=== PATIENT | male | born 1945 | race Caucasian/White ===

== ENCOUNTER → 2020-06-30 | Outpatient (CLI) | payer MEDICARE ==
--- NOTE | 2020-06-30 08:29 | CT ---
EXAMINATION TYPE: CT brain wo con DATE OF EXAM: 06/30/2020 HISTORY: Tremor, unspecified left-sided CT DLP: 1064.30 mGycm. Automated Exposure Control for Dose Reduction was Utilized. TECHNIQUE: CT scan of the head is performed without contrast. COMPARISON: None. FINDINGS: There is no acute intracranial hemorrhage or midline shift identified. There is diffuse v entricular and sulcal prominence consistent with diffuse age-related cerebral atrophy. There is low- attenuation in the periventricular white matter consistent with chronic small vessel ischemic change. Patchy soft tissue density in the bilateral external auditory canals is felt to reflect cerumen. Dep endent air-fluid level right maxillary sinus. Patchy secretions in the right frontal sinus. Mild call osal thickening left frontal sinus. Zxyr-ot-vyelrjiz mucosal thickening in the left ethmoid sinuses g reater anteriorly. The globes are intact bilaterally. IMPRESSION: No acute intracranial hemorrhage or midline shift. There is background mild to moderate diffuse age-related cerebral atrophy and chronic small vessel ischemic change along with acute on ch ronic paranasal sinus disease as detailed above all noted.
== END | disposition home or self-care (01) ==
LOC: RADCTMAIN 07:12
PROVIDERS: ATTEND Psychiatry & Neurology Neurology
DX: G31.1 Senile degeneration of brain, not elsewhere classified (principal); I67.82 Cerebral ischemia
CPT/HCPCS: 70450

== ENCOUNTER 2021-11-18 11:26 | Emergency (ER) | payer MEDICARE ==
[2021-11-18 12:01] LABS: Glucose,Whole Blood 216 mg/dL (75-99)
[2021-11-18 12:02] VITALS: RESP 18
[2021-11-18] MEDS ORDERED: HYDROmorphone 1 MG/ML 1 ML SYRINGE IM STA (12:17)
--- NOTE | 2021-11-18 12:40 | XR ---
EXAMINATION TYPE: XR wrist complete LT DATE OF EXAM: 11/18/2021 COMPARISON: NONE HISTORY: Pain TECHNIQUE: Four views submitted. FINDINGS: There is a comminuted distal placed intra-articular fracture of the distal radius with extensive soft tissue edema. Vascular calcifications are suspected. Remaining osseous structures are grossly intact . A scaphoid view nondiagnostic due to motion. IMPRESSION: 1. Displaced comminuted intra-articular fracture distal radius.
--- NOTE | 2021-11-18 12:54 | ED ---
General Adult HPI - General Chief complaint: Fall Stated complaint: Fall/Lt Wrist Injury Time Seen by Provider: 11/18/21 12:12 Source: patient, RN notes reviewed, old records reviewed Mode of arrival: wheelchair Limitations: no limitations - History of Present Illness Initial comments: 76-year-old male presenting for a trip and fall, left wrist pain. Patient states his blood sugar was on the low side, had gone to the kitchen to get some breakfast. He turned quickly to answer the door and fell onto his left wrist. He denies head trauma. His only complaint is left wrist pain. He states that he did notice a significant deformity. - Related Data Home Medications Medication Instructions Recorded Confirmed INSULIN LISPRO (humaLOG) [HumaLOG] 0 units SQ CONTINUOUS 02/16/15 10/19/16 lisinopriL [Zestril] 2.5 mg PO DAILY 02/16/15 10/19/16 Ibuprofen [Motrin] 200 mg PO Q6HR PRN 10/18/16 10/19/16 Multivitamins, Thera [Multivitamin] 1 tab PO DAILY 10/18/16 10/19/16 Previous Rx's Medication Instructions Recorded HYDROcodone/APAP 7.5-325MG [Luther 1 - 2 each PO Q6HR PRN #40 tab 10/19/16 7.5] HYDROcodone/APAP 7.5-325MG [Luther 1 tab PO Q6H PRN #20 tab 11/18/21 7.5-325] Ibuprofen [Motrin] 600 mg PO Q8HR PRN #24 tab 11/18/21 Allergies Allergy/AdvReac Type Severity Reaction Status Date / Time No Known Allergies Allergy Verified 11/18/21 12:02 Review of Systems ROS Statement: Those systems with pertinent positive or pertinent negative responses have been documented in the HPI. ROS Other: All systems not noted in ROS Statement are negative. Past Medical History Past Medical History: Diabetes Mellitus Additional Past Medical History / Comment(s): insulin pump, parkinsons History of Any Multi-Drug Resistant Organisms: None Reported Additional Past Surgical History / Comment(s): left leg surgery after injury Past Anesthesia/Blood Transfusion Reactions: No Reported Reaction Past Psychological History: No Psychological Hx Reported Smoking Status: Former smoker Past Alcohol Use History: Occasional Past Drug Use History: None Reported General Exam Limitations: no limitations General appearance: alert, in no apparent distress Head exam: Present: atraumatic, normocephalic Eye exam: Present: normal appearance, PERRL ENT exam: Present: normal exam Neck exam: Present: normal inspection. Absent: tenderness, meningismus Respiratory exam: Present: normal lung sounds bilaterally. Absent: respiratory distress, wheezes Cardiovascular Exam: Present: regular rate, normal rhythm GI/Abdominal exam: Present: soft. Absent: distended, tenderness Extremities exam: Present: joint swelling (Left upper extremity, deformity at the wrist with soft tissue swelling. Cap refill within the hand is normal. Distal pulses are intact, he does have range of motion of all digits although this is somewhat limited secondary to pain. No injury to the elbow or shoulder on the left side.) Back exam: Present: normal inspection Neurological exam: Present: alert, oriented X3, CN II-XII intact. Absent: motor sensory deficit Psychiatric exam: Present: normal affect, normal mood Skin exam: Present: warm, dry, intact. Absent: cyanosis, diaphoretic Course Vital Signs 11/18/21 11:56 Temperature 98.7 F Pulse Rate 54 L Respiratory 18 Rate Blood Pressure 183/77 O2 Sat by Pulse 100 Oximetry Procedures - Orthopedic Splinting/Casting Injury #1 Side: left Upper Extremity Injury Location: wrist Upper Extremity Immobilizer: sugar tong splint Medical Decision Making - Medical Decision Making 76-year-old male with fall, left wrist injury. X-ray revealed impacted distal radius with intra-articular extension. I was able to place the patient in a finger trap and had improved impaction he was placed in a splint. I discussed case with Reena salazar for [facility]. She was able to review the films and agrees with outpatient follow-up at this time. The patient is given referral to Dr. Llanes. Additionally pain medication prescribed. - Lab Data Lab Results 11/18/21 Range/Units 11:59 POC Glucose (mg/dL) 216 H (75-99) mg/dL POC Glu Septic Pump Truck Driver ID Amanda Alonzotany Disposition Clinical Impression: Distal radius fracture, left Disposition: HOME SELF-CARE Condition: Fair Instructions (If sedation given, give patient instructions): Wrist Fracture in Adults (ED) Prescriptions: Ibuprofen [Motrin] 600 mg PO Q8HR PRN #24 tab PRN Reason: Pain HYDROcodone/APAP 7.5-325MG [Luther 7.5-325] 1 tab PO Q6H PRN #20 tab PRN Reason: Pain Is patient prescribed a controlled substance at d/c from ED?: No Referrals: Roni Montenegro DO [Primary Care Provider] - 1-2 days Rochelle Llanes DO [Doctor of Osteopathic Medicine] - 1-2 days Time of Disposition: 13:34
--- NOTE | 2021-11-18 13:59 | XR ---
EXAMINATION TYPE: XR wrist limited LT DATE OF EXAM: 11/18/2021 COMPARISON: Earlier today HISTORY: 76-year-old male fall, postreduction exam. Patient in traction. TECHNIQUE: 2 views FINDINGS: Overlying fiberglass splint. Redemonstrated impacted and comminuted intra-articular fracture of the d istal radial metaphysis and epiphysis. Impaction of 9 mm is improved compared to 1.5 cm, previously. Resultant minimal positive ulnar variance. Fracture extends into the radiocarpal as well as the dista l radial ulnar joints. Mild degenerative change base of the thumb. IMPRESSION: The degree of impaction is improved. 9 mm of impaction remains of the comminuted intra-articular frac ture of the distal radial metaphysis and epiphysis versus 1.5 cm, previously. Intra-articular extensi on into both the radiocarpal and distal radioulnar joints. Overlying fiberglass splint.
[2021-11-18 14:13] VITALS: BP 158/74; PULSE 59; TEMP 98.6
== END 2021-11-18 14:10 | disposition home or self-care (01) ==
LOC: EC 11:26
DX: S52.592A Other fractures of lower end of left radius, initial encounter for closed fracture (principal); E11.9 Type 2 diabetes mellitus without complications; Z79.4 Long term (current) use of insulin; Z87.891 Personal history of nicotine dependence; W01.0XXA Fall on same level from slipping, tripping and stumbling without subsequent striking against object, initial encounter
CPT/HCPCS: 99283; 96372; 29125; 36415; 73100; 73110; J1170

== ENCOUNTER 2022-09-20 18:51 | Inpatient (IN) | payer MEDICARE ==
[2022-09-20] MEDS ORDERED: ONDANSETRON 4 MG/2 ML VIAL IVP STA (19:03)
[2022-09-20] MEDS ORDERED: SODIUM CHLORIDE 0.9% 1,000 ML IV STA (19:03)
[2022-09-20 19:07] LABS: Glucose,Whole Blood >600 mg/dL (70-110)
[2022-09-20] MEDS ORDERED: SODIUM CHLORIDE 0.9% 1,000 ML IV ONE (19:25)
[2022-09-20 19:26] LABS: Basophils % (A) 0 %; Eosinophils % (A) 0 %; HCT 43.3 % (39.0-53.0); HGB 12.6 gm/dL (13.0-17.5); Hypochromasia Marked; Lymphocytes # (A) 0.9 k/uL (1.0-4.8); Lymphocytes % (A) 4 %; MCH 30.6 pg (25.0-35.0); MCHC 29.2 g/dL (31.0-37.0); MCV 104.9 fL (80.0-100.0); Macrocytosis Slight; Monocytes # (A) 0.9 k/uL (0-1.0); Monocytes % (A) 4 %; Neutrophils # (A) 20.8 k/uL (1.3-7.7); Neutrophils % (A) 92 %; Platelet Count 318 k/uL (150-450); RBC 4.13 m/uL (4.30-5.90); RDW 12.4 % (11.5-15.5); WBC 22.7 k/uL (3.8-10.6)
[2022-09-20 19:30] LABS: VBG PH 7.07 (7.31-7.41)
--- NOTE | 2022-09-20 19:36 | ED ---
General Adult HPI - General Chief complaint: Recheck/Abnormal Lab/Rx Stated complaint: hyperglycemia Time Seen by Provider: 09/20/22 19:10 Source: patient, EMS, RN notes reviewed Mode of arrival: ambulatory Limitations: no limitations - History of Present Illness Initial comments: This is a 77-year-old diabetic male who arrives via EMS for high blood sugar. EMS had blood glucose in excess of 600. Patient is talking nonsensical and is essentially alert and oriented 1. Poor historian otherwise. Patient started talking about his . Patient does occasionally he is diabetic and his blood sugars running high. Patient knows he is in a hospital but is disoriented to time. Denying any pain. Patient will she's been sick for about 2 days. Review of systems are limited due to patient condition. Patient denies any chest pain or abdominal pain. No known fever. Denies vomiting. Denies change in bowel movements. States he is thirsty and has been urinating a lot. Note that apparently the patient had his insulin pump in his pocket and it was not on. Patient unable, however he was off the pump. - Related Data Home Medications Medication Instructions Recorded Confirmed Carbidopa-Levodopa ER 50-200Mg 1 tab PO BID 09/20/22 09/20/22 [Sinemet CR 50-200 mg] INSULIN LISPRO (For Pump) [humaLOG 0.01 units SQ-PUMP CONTINUOUS MDD 09/20/22 09/20/22 (For Pump)] 100 UNITS Allergies Allergy/AdvReac Type Severity Reaction Status Date / Time No Known Allergies Allergy Verified 09/20/22 21:06 Review of Systems ROS Statement: Those systems with pertinent positive or pertinent negative responses have been documented in the HPI. ROS Other: All systems not noted in ROS Statement are negative. Past Medical History Past Medical History: Diabetes Mellitus Additional Past Medical History / Comment(s): insulin pump, parkinsons, History of Any Multi-Drug Resistant Organisms: None Reported Additional Past Surgical History / Comment(s): left leg surgery after injury Past Anesthesia/Blood Transfusion Reactions: No Reported Reaction Past Psychological History: No Psychological Hx Reported Smoking Status: Former smoker Past Alcohol Use History: Occasional Past Drug Use History: None Reported General Exam - General Exam Comments Initial Comments: Patient in moderate distress secondary to hyperglycemia. Patient is alert and oriented 2. Cranial nerves II through XII are. The intact. Patient's confusion likely metabolic related. Capillary refill is about 3 seconds. There is no mottling. Dry mucous membranes. Limitations: no limitations General appearance: alert, in no apparent distress Head exam: Present: atraumatic, normocephalic, normal inspection Eye exam: Present: normal appearance, PERRL, EOMI. Absent: scleral icterus, conjunctival injection, periorbital swelling ENT exam: Present: normal oropharynx, mucous membranes dry, mucous membranes moist, TM's normal bilaterally, normal external ear exam. Absent: normal exam Neck exam: Present: normal inspection, full ROM. Absent: tenderness, meningismus, lymphadenopathy Respiratory exam: Present: normal lung sounds bilaterally. Absent: respiratory distress, wheezes, rales, rhonchi, stridor Cardiovascular Exam: Present: normal rhythm, tachycardia, normal heart sounds. Absent: regular rate, systolic murmur, diastolic murmur, rubs, gallop, clicks GI/Abdominal exam: Present: soft, hypoactive bowel sounds. Absent: distended, tenderness, guarding, rebound, rigid Extremities exam: Present: normal inspection, full ROM, normal capillary refill. Absent: tenderness, pedal edema, joint swelling, calf tenderness Back exam: Present: normal inspection Neurological exam: Present: alert, oriented X3, CN II-XII intact Psychiatric exam: Present: normal affect, normal mood Skin exam: Present: warm, dry, intact, normal color. Absent: rash Course Vital Signs 09/20/22 09/20/22 09/20/22 18:52 19:29 21:00 Temperature 98.2 F 98.7 F Pulse Rate 122 H 112 H 111 H Respiratory 28 H 32 H 18 Rate Blood Pressure 144/57 137/51 97/41 O2 Sat by Pulse 100 98 96 Oximetry 09/20/22 09/20/22 21:41 22:03 Temperature Pulse Rate 110 H 109 H Respiratory 18 17 Rate Blood Pressure 110/57 137/77 O2 Sat by Pulse 97 96 Oximetry - Reevaluation(s) Reevaluation #1: 09/20/22 20:09 Patient reevaluated. Patient still in fairly significant distress secondary to hyperglycemia. The case was discussed in detail with ED attending physician. Presentation, findings, treatment plan discussed in detail. Reevaluation #2: 09/20/22 21:17 Medical record is reviewed Patient symptomology starting to improve. Alert and oriented 2. Awaiting radiographic interpretations. Patient is informed of results and questions answered Patient in no distress Reevaluation #3: 09/20/22 22:04 Computed tomography scan of the abdomen shows streaky atelectasis of lung bases. No evidence of infiltrate. Patient does have cholelithiasis with dense gallstones in the gallbladder neck, motion limits evaluation. Pancreas is unremarkable. - Consultations Consultation #1: Case discussed in detail with ED attending physician as well as the superintendent landfill operations, Dr. Colvin who at accepts the patient to the ICU. Awaiting callback from the patient's PCP EKG Findings - EKG Comments: EKG Findings:: EKG done at 1903 ED attending physician reveals sinus tachycardia with a first-degree AV block. Left atrial enlargement, left axis deviation, right bundle-branch block, DC interval 250 ms. Remainder of the intervals are normal. No definitive evidence of acute ST or T-wave abnormalities. No comparison study. Medical Decision Making - Medical Decision Making Patient presents with what is likely DKA or hyperosmolar state. Blood sugar in excess of 600. Infectious etiology or cofounding factor possible. Patient's is not here. Patient's poor historian. Difficult to get an accurate history. Does not appear to have any focal neurologic deficits. No evidence of injury. Patient denies nausea or vomiting however in the nurse's note per EMS the patient did have episodes of nausea and vomiting at home. Patient was also seen and assessed by the attending physician, Dr. Thomas We are trying to get hold patient's . Patient computed tomography scan did show gallstones. However patient has normal alkaline phosphatase and liver enzymes. I suspect these are not problematic at this time. No other definitive evidence of infectious process. I see no reason to place patient on antibiotics as now. This was discussed with both Dr. Colvin and Dr. Salazar - Lab Data Result diagrams: 09/20/22 19:15 09/20/22 19:15 Lab Results 09/20/22 09/20/22 09/20/22 Range/Units 18:57 19:15 19:15 WBC 22.7 H (3.8-10.6) k/uL RBC 4.13 L (4.30-5.90) m/uL Hgb 12.6 L (13.0-17.5) gm/dL Hct 43.3 (39.0-53.0) % MCV 104.9 H (80.0-100.0) fL MCH 30.6 (25.0-35.0) pg MCHC 29.2 L (31.0-37.0) g/dL RDW 12.4 (11.5-15.5) % Plt Count 318 (150-450) k/uL MPV 10.0 Neutrophils % 92 % Lymphocytes % 4 % Monocytes % 4 % Eosinophils % 0 % Basophils % 0 % Neutrophils # 20.8 H (1.3-7.7) k/uL Lymphocytes # 0.9 L (1.0-4.8) k/uL Monocytes # 0.9 (0-1.0) k/uL Eosinophils # 0.0 (0-0.7) k/uL Basophils # 0.0 (0-0.2) k/uL Hypochromasia Marked Macrocytosis Slight PT 11.0 (9.0-12.0) sec INR 1.0 (<1.2) APTT 22.4 (22.0-30.0) sec VBG pH (7.31-7.41) VBG pCO2 (37-51) mmHg VBG HCO3 (24-28) mmol/L Sodium (137-145) mmol/L Potassium (3.5-5.1) mmol/L Chloride (98-107) mmol/L Carbon Dioxide (22-30) mmol/L Anion Gap mmol/L BUN (9-20) mg/dL Creatinine (0.66-1.25) mg/dL Est GFR (CKD-EPI)AfAm (>60 ml/min/1.73 sqM) Est GFR (CKD-EPI)NonAf (>60 ml/min/1.73 sqM) Glucose (74-99) mg/dL POC Glucose (mg/dL) >600 H (70-110) mg/dL POC Glu Body Press Operator ID Nasrin Rojas Lactic Ac Sepsis Rflx Plasma Lactic Acid Alonso (0.7-2.0) mmol/L Calcium (8.4-10.2) mg/dL Phosphorus (2.5-4.5) mg/dL Magnesium (1.6-2.3) mg/dL Total Bilirubin (0.2-1.3) mg/dL AST (17-59) U/L ALT (4-49) U/L Alkaline Phosphatase (38-126) U/L Troponin I (0.000-0.034) ng/mL Total Protein (6.3-8.2) g/dL Albumin (3.5-5.0) g/dL Lipase (23-300) U/L Urine Color Urine Appearance (Clear) Urine pH (5.0-8.0) Ur Specific Blanding (1.001-1.035) Urine Protein (Negative) Urine Glucose (UA) (Negative) Urine Ketones (Negative) Urine Blood (Negative) Urine Nitrite (Negative) Urine Bilirubin (Negative) Urine Urobilinogen (<2.0) mg/dL Ur Leukocyte Esterase (Negative) Acetone, Qual (Negative) 09/20/22 09/20/22 09/20/22 Range/Units 19:15 19:15 19:15 WBC (3.8-10.6) k/uL RBC (4.30-5.90) m/uL Hgb (13.0-17.5) gm/dL Hct (39.0-53.0) % MCV (80.0-100.0) fL MCH (25.0-35.0) pg MCHC (31.0-37.0) g/dL RDW (11.5-15.5) % Plt Count (150-450) k/uL MPV Neutrophils % % Lymphocytes % % Monocytes % % Eosinophils % % Basophils % % Neutrophils # (1.3-7.7) k/uL Lymphocytes # (1.0-4.8) k/uL Monocytes # (0-1.0) k/uL Eosinophils # (0-0.7) k/uL Basophils # (0-0.2) k/uL Hypochromasia Macrocytosis PT (9.0-12.0) sec INR (<1.2) APTT (22.0-30.0) sec VBG pH (7.31-7.41) VBG pCO2 (37-51) mmHg VBG HCO3 (24-28) mmol/L Sodium 135 L (137-145) mmol/L Potassium 5.5 H (3.5-5.1) mmol/L Chloride 94 L (98-107) mmol/L Carbon Dioxide 6 L* (22-30) mmol/L Anion Gap 35 mmol/L BUN 43 H (9-20) mg/dL Creatinine 1.73 H (0.66-1.25) mg/dL Est GFR (CKD-EPI)AfAm 44 (>60 ml/min/1.73 sqM) Est GFR (CKD-EPI)NonAf 38 (>60 ml/min/1.73 sqM) Glucose 924 H* (74-99) mg/dL POC Glucose (mg/dL) (70-110) mg/dL POC Glu Body Press Operator ID Lactic Ac Sepsis Rflx Plasma Lactic Acid Alonso 11.2 H* (0.7-2.0) mmol/L Calcium 8.9 (8.4-10.2) mg/dL Phosphorus 8.4 H (2.5-4.5) mg/dL Magnesium 2.2 (1.6-2.3) mg/dL Total Bilirubin 1.2 (0.2-1.3) mg/dL AST 27 (17-59) U/L ALT 37 (4-49) U/L Alkaline Phosphatase 97 (38-126) U/L Troponin I 0.019 (0.000-0.034) ng/mL Total Protein 6.0 L (6.3-8.2) g/dL Albumin 4.1 (3.5-5.0) g/dL Lipase 1237 H (23-300) U/L Urine Color Urine Appearance (Clear) Urine pH (5.0-8.0) Ur Specific Blanding (1.001-1.035) Urine Protein (Negative) Urine Glucose (UA) (Negative) Urine Ketones (Negative) Urine Blood (Negative) Urine Nitrite (Negative) Urine Bilirubin (Negative) Urine Urobilinogen (<2.0) mg/dL Ur Leukocyte Esterase (Negative) Acetone, Qual Positive (Negative) 09/20/22 09/20/22 09/20/22 Range/Units 19:15 19:26 19:58 WBC (3.8-10.6) k/uL RBC (4.30-5.90) m/uL Hgb (13.0-17.5) gm/dL Hct (39.0-53.0) % MCV (80.0-100.0) fL MCH (25.0-35.0) pg MCHC (31.0-37.0) g/dL RDW (11.5-15.5) % Plt Count (150-450) k/uL MPV Neutrophils % % Lymphocytes % % Monocytes % % Eosinophils % % Basophils % % Neutrophils # (1.3-7.7) k/uL Lymphocytes # (1.0-4.8) k/uL Monocytes # (0-1.0) k/uL Eosinophils # (0-0.7) k/uL Basophils # (0-0.2) k/uL Hypochromasia Macrocytosis PT (9.0-12.0) sec INR (<1.2) APTT (22.0-30.0) sec VBG pH 7.07 L* (7.31-7.41) VBG pCO2 23 L (37-51) mmHg VBG HCO3 7 L* (24-28) mmol/L Sodium (137-145) mmol/L Potassium (3.5-5.1) mmol/L Chloride (98-107) mmol/L Carbon Dioxide (22-30) mmol/L Anion Gap mmol/L BUN (9-20) mg/dL Creatinine (0.66-1.25) mg/dL Est GFR (CKD-EPI)AfAm (>60 ml/min/1.73 sqM) Est GFR (CKD-EPI)NonAf (>60 ml/min/1.73 sqM) Glucose (74-99) mg/dL POC Glucose (mg/dL) (70-110) mg/dL POC Glu Body Press Operator ID Lactic Ac Sepsis Rflx Y Plasma Lactic Acid Alonso (0.7-2.0) mmol/L Calcium (8.4-10.2) mg/dL Phosphorus (2.5-4.5) mg/dL Magnesium (1.6-2.3) mg/dL Total Bilirubin (0.2-1.3) mg/dL AST (17-59) U/L ALT (4-49) U/L Alkaline Phosphatase (38-126) U/L Troponin I (0.000-0.034) ng/mL Total Protein (6.3-8.2) g/dL Albumin (3.5-5.0) g/dL Lipase (23-300) U/L Urine Color Light Yellow Urine Appearance Clear (Clear) Urine pH 5.0 (5.0-8.0) Ur Specific Blanding 1.022 (1.001-1.035) Urine Protein Negative (Negative) Urine Glucose (UA) 4+ H (Negative) Urine Ketones 2+ H (Negative) Urine Blood Negative (Negative) Urine Nitrite Negative (Negative) Urine Bilirubin Negative (Negative) Urine Urobilinogen <2.0 (<2.0) mg/dL Ur Leukocyte Esterase Negative (Negative) Acetone, Qual (Negative) 09/20/22 Range/Units 21:21 WBC (3.8-10.6) k/uL RBC (4.30-5.90) m/uL Hgb (13.0-17.5) gm/dL Hct (39.0-53.0) % MCV (80.0-100.0) fL MCH (25.0-35.0) pg MCHC (31.0-37.0) g/dL RDW (11.5-15.5) % Plt Count (150-450) k/uL MPV Neutrophils % % Lymphocytes % % Monocytes % % Eosinophils % % Basophils % % Neutrophils # (1.3-7.7) k/uL Lymphocytes # (1.0-4.8) k/uL Monocytes # (0-1.0) k/uL Eosinophils # (0-0.7) k/uL Basophils # (0-0.2) k/uL Hypochromasia Macrocytosis PT (9.0-12.0) sec INR (<1.2) APTT (22.0-30.0) sec VBG pH (7.31-7.41) VBG pCO2 (37-51) mmHg VBG HCO3 (24-28) mmol/L Sodium (137-145) mmol/L Potassium (3.5-5.1) mmol/L Chloride (98-107) mmol/L Carbon Dioxide (22-30) mmol/L Anion Gap mmol/L BUN (9-20) mg/dL Creatinine (0.66-1.25) mg/dL Est GFR (CKD-EPI)AfAm (>60 ml/min/1.73 sqM) Est GFR (CKD-EPI)NonAf (>60 ml/min/1.73 sqM) Glucose (74-99) mg/dL POC Glucose (mg/dL) >600 H (70-110) mg/dL POC Glu Body Press Operator ID Art Montoya Lactic Ac Sepsis Rflx Plasma Lactic Acid Alonso (0.7-2.0) mmol/L Calcium (8.4-10.2) mg/dL Phosphorus (2.5-4.5) mg/dL Magnesium (1.6-2.3) mg/dL Total Bilirubin (0.2-1.3) mg/dL AST (17-59) U/L ALT (4-49) U/L Alkaline Phosphatase (38-126) U/L Troponin I (0.000-0.034) ng/mL Total Protein (6.3-8.2) g/dL Albumin (3.5-5.0) g/dL Lipase (23-300) U/L Urine Color Urine Appearance (Clear) Urine pH (5.0-8.0) Ur Specific Blanding (1.001-1.035) Urine Protein (Negative) Urine Glucose (UA) (Negative) Urine Ketones (Negative) Urine Blood (Negative) Urine Nitrite (Negative) Urine Bilirubin (Negative) Urine Urobilinogen (<2.0) mg/dL Ur Leukocyte Esterase (Negative) Acetone, Qual (Negative) Critical Care Time Critical Care Time: Yes Total Critical Care Time: 40 Critical Care Time: Multiple re-evaluations. Multiple interventions. Interpretation diagnostic tests. Interpretations patient's response to treatment. Discussion with admitting physician and superintendent landfill operations. Diabetic ketoacidosis with anion gap of 35, pH of 7.07 Disposition Clinical Impression: Diabetic ketoacidosis, Pancreatitis, Acute kidney injury, Hyperphosphatemia Disposition: ADMITTED IP TO THIS [facility] Condition: Critical Time of Disposition: 20:10 Decision to Admit Reason: Admit from EC Decision Time: 20:10
[2022-09-20 19:43] LABS: AST 27 U/L (17-59); African American GFR (CKD) 44 (>60 ml/min/1.73 sqM); Albumin 4.1 g/dL (3.5-5.0); Alkaline Phosphatase 97 U/L (38-126); Anion Gap 35 mmol/L; Blood Urea Nitrogen 43 mg/dL (9-20); Calcium 8.9 mg/dL (8.4-10.2); Chloride 94 mmol/L (98-107); Lipase 1237 U/L (23-300); Magnesium 2.2 mg/dL (1.6-2.3); Non-African American GFR(CKD) 38 (>60 ml/min/1.73 sqM); Phosphorus 8.4 mg/dL (2.5-4.5); Potassium 5.5 mmol/L (3.5-5.1); Sodium 135 mmol/L (137-145); Total Bilirubin 1.2 mg/dL (0.2-1.3)
[2022-09-20 19:52] LABS: Appearance,Urine Clear (Clear); Bilirubin,Urine Negative (Negative); Blood,Urine Negative (Negative); Color,Urine Light Yellow; Glucose,Urine (UA) 4+ (Negative); Leukocyte Esterase,Urine Negative (Negative); Nitrite,Urine Negative (Negative); Protein,Urine Negative (Negative); Specific Gravity,Urine 1.022 (1.001-1.035); Urobilinogen,Urine <2.0 mg/dL (<2.0)
[2022-09-20 20:00] LABS: Carbon Dioxide 6 mmol/L (22-30); Glucose 924 mg/dL (74-99)
[2022-09-20 20:01] LABS: ALT 37 U/L (4-49)
[2022-09-20] MEDS ORDERED: LORazepam 2 MG/ML INJ IV STA (20:01)
[2022-09-20 20:04] LABS: Partial Thromboplastin Time 22.4 sec (22.0-30.0)
--- NOTE | 2022-09-20 20:12 | XR ---
EXAMINATION TYPE: XR chest 1V portable DATE OF EXAM: 09/20/2022 7:47 PM COMPARISON: none TECHNIQUE: XR chest 1V portable Frontal view of the chest. CLINICAL INDICATION:Male, 77 years old with history of abdominal pain; FINDINGS: Lungs/Pleura: Low lung volumes are present. There is no evidence of pleural effusion, focal consolida tion, or pneumothorax. Pulmonary vascularity: Unremarkable. Heart/mediastinum: Cardiomediastinal silhouette is prominent in size. Musculoskeletal: No acute osseous pathology. IMPRESSION: Low lung volumes with no obvious focal consolidation or acute cardiopulmonary disease/process.
[2022-09-20 20:14] LABS: Ketones,Urine 2+ (Negative)
[2022-09-20] MEDS: SODIUM CHLORIDE 0.9% 1,000 ML IV SCH (20:30)
[2022-09-20] MEDS: INSULIN REGULAR 100 UNIT in SODIUM CHLORIDE 0.9% 100 ML IV SCH (20:42)
[2022-09-20] MEDS ORDERED: NALOXONE 0.4 MG/ML 1 ML VIAL IV PRN (21:11)
[2022-09-20] MEDS ORDERED: LORazepam 2 MG/ML INJ IV PRN (21:11)
[2022-09-20] MEDS ORDERED: ACETAMINOPHEN TAB 325 MG TAB PO PRN (21:11)
[2022-09-20 21:22] LABS: Glucose,Whole Blood >600 mg/dL (70-110)
[2022-09-20] MEDS: PANTOPRAZOLE 40 MG/10 ML VIAL IV SCH (21:27)
--- NOTE | 2022-09-20 21:42 | CT ---
EXAMINATION TYPE: CT abdomen pelvis wo con CT DLP: 1580.4 mGycm, Automated exposure control for dose reduction was used. DATE OF EXAM: 09/20/2022 9:05 PM COMPARISON: None CLINICAL INDICATION:Male, 77 years old with history of Vomiting, DKA; Vomiting, DKA. PT AMS TECHNIQUE: Axial CT of the abdomen and pelvis. Sagittal and coronal reformats were created on a [employer] workstation. Contrast used: none Oral contrast used: without Oral Contrast FINDINGS: LOWER CHEST: Streaky atelectasis in the lung bases. The heart is mildly enlarged for size. ABDOMEN Motion limits evaluation. LIVER: Diffusely hypoattenuating parenchyma. GALLBLADDER AND BILE DUCTS: Dense gallstones are seen in the gallbladder neck. Motion limits evaluati on. PANCREAS: Unremarkable. SPLEEN: Unremarkable. ADRENAL GLANDS: Unremarkable. KIDNEYS AND URETERS: No evidence of hydronephrosis or renal calculus. The ureters are unremarkable. PELVIS BLADDER: Unremarkable REPRODUCTIVE: Prostate is enlarged in size measuring 5.0 cm in transverse dimension. 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 ABDOMEN & PELVIS STOMACH AND BOWEL: Limited evaluation of the upper abdomen secondary to motion. No evidence of bowel obstruction. PERITONEUM: No evidence of pneumoperitoneum or free fluid. VASCULATURE: No evidence of aortic aneurysm. MUSCULOSKELETAL: No acute osseous abnormalities LYMPH NODES: No gross evidence for lymphadenopathy. SOFT TISSUE/ABDOMINAL WALL: Unremarkable IMPRESSION: 1. No evidence for acute intra-abdominal process. 2. Hepatic steatosis. 3. Cholelithiasis 4. Prostatomegaly.
--- NOTE | 2022-09-20 21:44 | CT ---
EXAMINATION TYPE: CT brain wo con CT DLP: 1141.4 mGycm, Automated exposure control for dose reduction was used. DATE OF EXAM: 09/20/2022 9:05 PM COMPARISON: 10/09/2020. CLINICAL INDICATION:Male, 77 years old with history of Confusion, AMS and DKA TECHNIQUE: Brain: Axial CT images of the brain were obtained with coronal and sagittal reformats created and rev iewed. Contrast used: None. Oral contrast used: None. FINDINGS: Brain: Extra-axial spaces: No abnormal extra-axial fluid collections. Ventricular system: Dilatation in proportion to cerebral atrophy. Cerebral parenchyma: Cerebral atrophy. No acute intraparenchymal hemorrhage or mass effect. The luna -white junction is well [id number]. Cerebellum: Unremarkable. Mass effect: No evidence of midline shift. Intracranial vasculature: unremarkable Soft tissues: Normal. Calvarium/osseous structures: No depressed skull fracture. Paranasal sinuses and mastoid air cells: Mild scattered paranasal sinus disease. Visualized orbits: Orbital contents are intact. IMPRESSION: No acute intracranial process. No significant change from prior
[2022-09-20 22:30] LABS: Glucose,Whole Blood >600 mg/dL (70-110)
[2022-09-20 23:01] LABS: Glucose,Whole Blood >600 mg/dL (70-110)
[2022-09-20 23:44] LABS: Potassium 4.6 mmol/L (3.5-5.1)
[2022-09-20 23:58] LABS: Glucose,Whole Blood >600 mg/dL (70-110)
[2022-09-21 01:01] LABS: Glucose,Whole Blood >600 mg/dL (70-110)
[2022-09-21 02:04] LABS: Glucose,Whole Blood 582 mg/dL (70-110)
[2022-09-21] MEDS: SODIUM CHLORIDE 0.9% 1,000 ML IV SCH ×2 (02:32→07:48)
[2022-09-21 03:03] LABS: Glucose,Whole Blood 535 mg/dL (70-110)
[2022-09-21 03:36] LABS: HCT 36.5 % (39.0-53.0); HGB 11.8 gm/dL (13.0-17.5); Hypochromasia Slight; MCHC 32.3 g/dL (31.0-37.0); Mean Platelet Volume 9.5; Platelet Count 219 k/uL (150-450); RBC 3.79 m/uL (4.30-5.90); RDW 12.8 % (11.5-15.5); WBC 18.3 k/uL (3.8-10.6)
[2022-09-21 03:38] LABS: MCV 96.1 fL (80.0-100.0)
[2022-09-21 03:45] LABS: Potassium 3.9 mmol/L (3.5-5.1)
[2022-09-21] MEDS: INSULIN REGULAR 100 UNIT in SODIUM CHLORIDE 0.9% 100 ML IV SCH (04:09)
[2022-09-21 04:10] LABS: Glucose,Whole Blood 545 mg/dL (70-110)
[2022-09-21 05:06] LABS: Glucose,Whole Blood 455 mg/dL (70-110)
[2022-09-21 06:10] LABS: Glucose,Whole Blood 311 mg/dL (70-110)
[2022-09-21 07:00] LABS: Glucose,Whole Blood 291 mg/dL (70-110)
[2022-09-21 07:56] LABS: Glucose,Whole Blood 270 mg/dL (70-110)
[2022-09-21 08:08] LABS: Glucose,Whole Blood 225 mg/dL (70-110)
[2022-09-21 08:57] LABS: Phosphorus 2.6 mg/dL (2.5-4.5); Potassium 4.2 mmol/L (3.5-5.1)
[2022-09-21 09:09] LABS: Glucose,Whole Blood 217 mg/dL (70-110)
[2022-09-21] MEDS: HEPARIN SODIUM,PORCINE/PF 5,000 UNIT/0.5 ML SYRINGE SQ SCH ×2 (09:32→21:01)
[2022-09-21] MEDS: PANTOPRAZOLE 40 MG/10 ML VIAL IV SCH (09:32)
[2022-09-21] MEDS: D5-0.45% NACL WITH KCL 20MEQ/L 1,000 ML IV SCH ×3 (09:33→21:02)
--- NOTE | 2022-09-21 09:33 | P.CNPUL ---
History of Present Illness Consult date: 09/21/22 Chief complaint: altered mental status History of present illness: 77-year-old male patient, diabetic, probably type I, maintenance and on his li paul and is currently on insulin pump. He has been running higher blood sugar for the past week or so and he has been feeling weak and dehydrated. He came to the emergency room via EMS. He blood sugar was above 600. He was altered and he was unable to provide history. He stated that he was given feeling sick for a few days. No nausea or vomiting or emesis. No abdominal pain. He was found to be an anion gap metabolic acidosis consistent with DKA. He was treated with Levaquin and this morning his anion gap is closed. In summary, based on the labs, his initial anion gap was quite elevated at 35. His serum bicarbonate was as low was 6. Most recent serum bicarb is up to 23. The patient's anion gap is also down to 9. He received fluids in the form of normal saline and he was aggressively resuscitated with IV fluids a total of 3 L was given to him in the emergency, currently he is on D5 half-normal at the rate of 150 mL an hour. Insulin drip is currently running at 10 units an hour. Blood sugar is currently 217. White cell count of 18.3 hemoglobin is 11.8. He has no specific complaints. Cognition profile is within normal. An acute kidney injury which is also improving. Creatinine is at time of admission was 1.73 and is currently down to 1.49. UA was negative. Urine drug screen has not been done. LFTs are normal. Influenza screen was negative. Covid 19 testing was negative Review of Systems Constitutional: Denies chills, Denies fever Eyes: denies as per HPI, denies blurred vision, denies bulging eye, denies decreased vision, denies diplopia, denies discharge, denies dry eye, denies irritation, denies itching, denies pain, denies photophobia, denies loss of peripheral vision, denies loss of vision, denies tunnel vision/blind spots Ears: deny: decreased hearing, ear discharge, earache, tinnitus Ears, nose, mouth and throat: Reports as per HPI Breasts: absent: as per HPI, gynecomastia Cardiovascular: Reports as per HPI Respiratory: Reports as per HPI Gastrointestinal: Reports as per HPI Genitourinary: Reports as per HPI Musculoskeletal: Reports as per HPI Musculoskeletal: absent: ankle pain, ankle stiffness, ankle swelling, as per HPI, elbow pain, elbow stiffness, elbow swelling, foot pain, foot stiffness, foot swelling, hand pain, hand stiffness, hand swelling, hip pain, hip stiffness, hip swelling, knee pain, knee stiffness, knee swelling, shoulder terra n, shoulder stiffness, shoulder swelling, wrist pain, wrist stiffness, wrist swelling Integumentary: Reports as per HPI Neurological: Reports change in mentation, Reports gait dysfunction, Reports memory loss, Reports weakness Psychiatric: Reports as per HPI Endocrine: Reports as per HPI, Reports high blood sugars Hematologic/Lymphatic: Reports as per HPI Allergic/Immunologic: Reports as per HPI Past Medical History Past Medical History: Diabetes Mellitus Additional Past Medical History / Comment(s): insulin pump, parkinsons History of Any Multi-Drug Resistant Organisms: None Reported Additional Past Surgical History / Comment(s): left leg surgery after injury- titanium knee; Left shoulder repair ; left wrist repair Past Anesthesia/Blood Transfusion Reactions: No Reported Reaction Smoking Status: Former smoker Medications and Allergies Home Medications Medication Instructions Recorded Confirmed Type Carbidopa-Levodopa ER 50-200Mg 1 tab PO BID 09/20/22 09/20/22 History [Sinemet CR 50-200 mg] INSULIN LISPRO (For Pump) [humaLOG 0.01 units SQ-PUMP CONTINUOUS MDD 09/20/22 09/20/22 History (For Pump)] 100 UNITS Allergies Allergy/AdvReac Type Severity Reaction Status Date / Time No Known Allergies Allergy Verified 09/20/22 21:06 Physical Exam Vitals: Vital Signs Temp Pulse Resp BP Pulse Ox 09/21/22 07:00 87 18 136/52 98 09/21/22 06:00 79 14 119/76 98 09/21/22 05:00 92 18 133/49 98 09/21/22 04:00 97.6 F 87 24 136/57 98 09/21/22 03:00 89 15 135/49 97 09/21/22 02:00 93 18 120/48 97 09/21/22 01:00 98 18 128/53 96 09/21/22 00:10 105 H 14 128/53 98 09/21/22 00:00 98.2 F 103 H 18 118/50 96 09/20/22 23:00 104 H 15 115/61 94 L 09/20/22 22:30 110 H 22 115/61 98 09/20/22 22:25 111 H 09/20/22 22:03 109 H 17 137/77 96 09/20/22 21:41 110 H 18 110/57 97 09/20/22 21:00 98.7 F 111 H 18 97/41 96 09/20/22 19:29 112 H 32 H 137/51 98 09/20/22 18:52 98.2 F 122 H 28 H 144/57 100 Intake and Output 09/20/22 09/21/22 09/21/22 22:59 06:59 14:59 Intake Total 030.296 3127.173 234.337 Output Total 0 300 0 Balance 626.807 5462.173 234.337 Intake: Intake, IV Titration 298.654 0728.173 234.337 Amount Insulin Regular 100 unit 5.581 59.173 34.337 In Sodium Chloride 0.9% 100 ml @ 0.1 UNITS/KG/HR 7.788 mls/hr IV .[id number] JAY Rx#:[id number] Sodium Chloride 0.9% 1, 200 1600 200 000 ml @ 200 mls/hr IV . Q5H JAY Rx#:[id number] Output: Urine 0 300 0 Other: Voiding Method External Catheter Weight 77.111 kg 83.9 kg The patient appeared well nourished and normally developed. Vital signs as documented. Head exam is unremarkable. No scleral icterus or corneal arcus no dana. Neck is without jugular venous distension, thyromegaly, or carotid bruits. Carotid upstrokes are brisk bilaterally. Lungs are clear to auscultation and percussion. Cardiac exam reveals the PMI to be normally sized and situated. Rhythm is regular. First and second heart sounds normal. No murmurs, rubs or gallops. Abdominal exam reveals normal bowel sounds, no masses, no organomegaly and no aortic enlargement. Extremities are nonedematous and both femoral and pedal pulses are normal.Examination of the skin revealed no evidence of significant rashes, suspicious appearing nevi or other concerning lesions.Neurologically, the patient is awake and alert and the patient does not have any focal neurological deficit. Cranial nerves are essentially intact. Results - Laboratory Findings CBC and BMP: 09/21/22 03:13 09/21/22 08:17 ABG WBC 18.3 k/uL (3.8-10.6) H 09/21/22 03:13 RBC 3.79 m/uL (4.30-5.90) L 09/21/22 03:13 Hgb 11.8 gm/dL (13.0-17.5) L 09/21/22 03:13 Hct 36.5 % (39.0-53.0) L 09/21/22 03:13 MCV 96.1 fL (80.0-100.0) D 09/21/22 03:13 MCH 31.0 pg (25.0-35.0) 09/21/22 03:13 MCHC 32.3 g/dL (31.0-37.0) 09/21/22 03:13 RDW 12.8 % (11.5-15.5) 09/21/22 03:13 Plt Count 219 k/uL (150-450) 09/21/22 03:13 MPV 9.5 09/21/22 03:13 Neutrophils % 92 % 09/20/22 19:15 Lymphocytes % 4 % 09/20/22 19:15 Monocytes % 4 % 09/20/22 19:15 Eosinophils % 0 % 09/20/22 19:15 Basophils % 0 % 09/20/22 19:15 Neutrophils # 20.8 k/uL (1.3-7.7) H 09/20/22 19:15 Lymphocytes # 0.9 k/uL (1.0-4.8) L 09/20/22 19:15 Monocytes # 0.9 k/uL (0-1.0) 09/20/22 19:15 Eosinophils # 0.0 k/uL (0-0.7) 09/20/22 19:15 Basophils # 0.0 k/uL (0-0.2) 09/20/22 19:15 Hypochromasia Slight 09/21/22 03:13 Macrocytosis Slight 09/20/22 19:15 PT 11.0 sec (9.0-12.0) 09/20/22 19:15 INR 1.0 (<1.2) 09/20/22 19:15 APTT 22.4 sec (22.0-30.0) 09/20/22 19:15 VBG pH 7.07 (7.31-7.41) L* 09/20/22 19:15 VBG pCO2 23 mmHg (37-51) L 09/20/22 19:15 VBG HCO3 7 mmol/L (24-28) L* 09/20/22 19:15 Sodium 143 mmol/L (137-145) 09/21/22 08:17 Potassium 4.2 mmol/L (3.5-5.1) 09/21/22 08:17 Chloride 111 mmol/L (98-107) H 09/21/22 08:17 Carbon Dioxide 23 mmol/L (22-30) 09/21/22 08:17 Anion Gap 9 mmol/L 09/21/22 08:17 BUN 50 mg/dL (9-20) H 09/21/22 08:17 Creatinine 1.49 mg/dL (0.66-1.25) H 09/21/22 08:17 Est GFR (CKD-EPI)AfAm 53 (>60 ml/min/1.73 sqM) 09/21/22 08:17 Est GFR (CKD-EPI)NonAf 45 (>60 ml/min/1.73 sqM) 09/21/22 08:17 Glucose 217 mg/dL (74-99) H 09/21/22 08:17 POC Glucose (mg/dL) 217 mg/dL (70-110) H 09/21/22 09:08 POC Glu Medical [employer] Worker ID Patsy Red 09/21/22 09:08 Lactic Ac Sepsis Rflx Y 09/21/22 03:59 Plasma Lactic Acid Alonso 2.5 mmol/L (0.7-2.0) H* 09/21/22 08:17 Calcium 8.9 mg/dL (8.4-10.2) 09/20/22 19:15 Phosphorus 2.6 mg/dL (2.5-4.5) 09/21/22 08:17 Magnesium 2.2 mg/dL (1.6-2.3) 09/20/22 19:15 Total Bilirubin 1.2 mg/dL (0.2-1.3) 09/20/22 19:15 AST 27 U/L (17-59) 09/20/22 19:15 ALT 37 U/L (4-49) 09/20/22 19:15 Alkaline Phosphatase 97 U/L (38-126) 09/20/22 19:15 Ammonia <9 umol/L (<30) 09/20/22 23:04 Troponin I 0.019 ng/mL (0.000-0.034) 09/20/22 19:15 Total Protein 6.0 g/dL (6.3-8.2) L 09/20/22 19:15 Albumin 4.1 g/dL (3.5-5.0) 09/20/22 19:15 Lipase 1237 U/L (23-300) H 09/20/22 19:15 Urine Color Light Yellow 09/20/22 19:26 Urine Appearance Clear (Clear) 09/20/22 19: Urine pH 5.0 (5.0-8.0) 09/20/22 19:26 Ur Specific Grundy 1.022 (1.001-1.035) 09/20/22 19:26 Urine Protein Negative (Negative) 09/20/22 19:26 Urine Glucose (UA) 4+ (Negative) H 09/20/22 19:26 Urine Ketones 2+ (Negative) H 09/20/22 19:26 Urine Blood Negative (Negative) 09/20/22 19: Urine Nitrite Negative (Negative) 09/20/22 19: Urine Bilirubin Negative (Negative) 09/20/22 19:26 Urine Urobilinogen <2.0 mg/dL (<2.0) 09/20/22 19:26 Ur Leukocyte Esterase Negative (Negative) 09/20/22 19:26 Acetone, Qual Positive (Negative) 09/20/22 19:15 Influenza Type A (PCR) Not Detected (Not Detectd) 09/20/22 21:28 Influenza Type B (PCR) Not Detected (Not Detectd) 09/20/22 21:28 RSV (PCR) Not Detected (Not Detectd) 09/20/22 21:28 SARS-CoV-2 (PCR) Not Detected (Not Detectd) 09/20/22 21:28 PT/INR, D-dimer PT 11.0 sec (9.0-12.0) 09/20/22 19:15 INR 1.0 (<1.2) 09/20/22 19:15 Abnormal lab findings: Abnormal Labs 09/20/22 09/20/22 09/20/22 18:57 19:15 19:15 WBC 22.7 H RBC 4.13 L Hgb 12.6 L Hct MCV 104.9 H MCHC 29.2 L Neutrophils # 20.8 H Lymphocytes # 0.9 L VBG pH VBG pCO2 VBG HCO3 Sodium 135 L Potassium 5.5 H Chloride 94 L Carbon Dioxide 6 L* BUN 43 H Creatinine 1.73 H Glucose 924 H* POC Glucose (mg/dL) >600 H Plasma Lactic Acid Alonso Phosphorus 8.4 H Total Protein 6.0 L Lipase 1237 H Urine Glucose (UA) Urine Ketones 09/20/22 09/20/22 09/20/22 19:15 19:15 19:26 WBC RBC Hgb Hct MCV MCHC Neutrophils # Lymphocytes # VBG pH 7.07 L* VBG pCO2 23 L VBG HCO3 7 L* Sodium Potassium Chloride Carbon Dioxide BUN Creatinine Glucose POC Glucose (mg/dL) Plasma Lactic Acid Alonso 11.2 H* Phosphorus Total Protein Lipase Urine Glucose (UA) 4+ H Urine Ketones 2+ H 09/20/22 09/20/22 09/20/22 21:21 22:29 22:58 WBC RBC Hgb Hct MCV MCHC Neutrophils # Lymphocytes # VBG pH VBG pCO2 VBG HCO3 Sodium Potassium Chloride Carbon Dioxide BUN Creatinine Glucose POC Glucose (mg/dL) >600 H >600 H >600 H Plasma Lactic Acid Alonso Phosphorus Total Protein Lipase Urine Glucose (UA) Urine Ketones 09/20/22 09/20/22 09/20/22 23:04 23:04 23:57 WBC RBC Hgb Hct MCV MCHC Neutrophils # Lymphocytes # VBG pH VBG pCO2 VBG HCO3 Sodium Potassium Chloride Carbon Dioxide 10 L BUN 49 H Creatinine 1.78 H Glucose 784 H* POC Glucose (mg/dL) >600 H Plasma Lactic Acid Alonso 6.0 H* Phosphorus Total Protein Lipase Urine Glucose (UA) Urine Ketones 09/21/22 09/21/22 09/21/22 01:00 02:02 03:01 WBC RBC Hgb Hct MCV MCHC Neutrophils # Lymphocytes # VBG pH VBG pCO2 VBG HCO3 Sodium Potassium Chloride Carbon Dioxide BUN Creatinine Glucose POC Glucose (mg/dL) >600 H 582 H 535 H Plasma Lactic Acid Alonso Phosphorus Total Protein Lipase Urine Glucose (UA) Urine Ketones 09/21/22 09/21/22 09/21/22 03:13 03:13 03:20 WBC 18.3 H RBC 3.79 L Hgb 11.8 L Hct 36.5 L MCV MCHC Neutrophils # Lymphocytes # VBG pH VBG pCO2 VBG HCO3 Sodium Potassium Chloride Carbon Dioxide BUN Creatinine Glucose POC Glucose (mg/dL) Plasma Lactic Acid Alonso 3.0 H* Phosphorus 2.2 L Total Protein Lipase Urine Glucose (UA) Urine Ketones 09/21/22 09/21/22 09/21/22 03:20 04:08 05:04 WBC RBC Hgb Hct MCV MCHC Neutrophils # Lymphocytes # VBG pH VBG pCO2 VBG HCO3 Sodium Potassium Chloride Carbon Dioxide 20 L BUN 52 H Creatinine 1.67 H Glucose 545 H* POC Glucose (mg/dL) 545 H 455 H Plasma Lactic Acid Alonso Phosphorus Total Protein Lipase Urine Glucose (UA) Urine Ketones 09/21/22 09/21/22 09/21/22 06:08 06:58 07:54 WBC RBC Hgb Hct MCV MCHC Neutrophils # Lymphocytes # VBG pH VBG pCO2 VBG HCO3 Sodium Potassium Chloride Carbon Dioxide BUN Creatinine Glucose POC Glucose (mg/dL) 311 H 291 H 270 H Plasma Lactic Acid Alonso Phosphorus Total Protein Lipase Urine Glucose (UA) Urine Ketones 09/21/22 09/21/22 09/21/22 08:06 08:17 08:17 WBC RBC Hgb Hct MCV MCHC Neutrophils # Lymphocytes # VBG pH VBG pCO2 VBG HCO3 Sodium Potassium Chloride 111 H Carbon Dioxide BUN 50 H Creatinine 1.49 H Glucose 217 H POC Glucose (mg/dL) 225 H Plasma Lactic Acid Alonso 2.5 H* Phosphorus Total Protein Lipase Urine Glucose (UA) Urine Ketones 09/21/22 09:08 WBC RBC Hgb Hct MCV MCHC Neutrophils # Lymphocytes # VBG pH VBG pCO2 VBG HCO3 Sodium Potassium Chloride Carbon Dioxide BUN Creatinine Glucose POC Glucose (mg/dL) 217 H Plasma Lactic Acid Alonso Phosphorus Total Protein Lipase Urine Glucose (UA) Urine Ketones - Diagnostic Findings Chest x-ray: image reviewed Assessment and Plan Plan: DKA with severe anion gap metabolic acidosis, exact cause is not clear. Could be a pump failure. Patient was on a higher blood sugars. There is a poor historian due to his Parkinson's disease and unable to give us more detailed information. We'll contact the accordingly. Fortunately, his DKA has recovered and the patient has improvement in his electrolytes and the gap is closed and a serum bicarb is normalized. Blood sugars under better control. Currently still on insulin drip. The patient is also on D5 half-normal saline at the rate of 150 mL an hour. Diabetes mellitus type 1 Acute leukocytosis, reactive. 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 Poor historian Plan Contact the to get some more information regarding his insulin pump Bring in the insulin pump to the hospital and try to use as the patient is being transitioned back to his usual diabetic medication May provide diet Give the insulin drip running at this point in time until her final decision is made regarding his maintenance insulin treatment Restart Sinemet Check a hemoglobin A1c Heparin subcu for DVT prophylaxis We'll continue to follow
[2022-09-21 10:12] LABS: Glucose,Whole Blood 139 mg/dL (70-110)
[2022-09-21 11:16] LABS: Glucose,Whole Blood 208 mg/dL (70-110)
--- NOTE | 2022-09-21 11:34 | P.HPIM ---
History of Present Illness H&P Date: 09/21/22 Chief Complaint: Hyperglycemia This is a 77-year-old gentleman with past medical history of diabetes mellitus 1. Insulin pump, Parkinson's disease, former nicotine dependence and multiple other medical issues presented to the ER with hyperglycemia, increased weakness, confusion over the last few days, vague historian. Patient reports his Parkinson's has been stable, has not required any steroids in the recent past, denies any infections. Patient reports he had been bow hunting, shot a deer, drug the deer approximately 30 feet to his 4 gonsales. He states blood sugars had progressive worsened, denied blurred vision, denies water intake 4 days with some nausea and vomiting. Denies abdominal pain. He also reports 2 days ago he woke up feeling out of it, confused with increased weakness, gait dysfunction .denies cough, congestion, fevers. Denies chest pain, palpitations or shortness of breath. ER noted apparently patient was not wearing his insulin pump instead it was in his pocket.On admission blood sugar was greater than 600, acetone positive, bicarb 6, anion gap 35. WBC 22.7, hemoglobin 12.6, MCV 104.9, platelets 318, INR 1, ABGs noted, sodium 135, potassium 5.5, BUN 49, creatinine 1.78. CT of head and pelvis reported no evidence for acute intra-abdominal process, hepatic steatosis, cholelithiasis and prostatomegaly, pancreas unremarkable. Lipase 1237, LFTs within normal limits, UA negative with 2+ ketones and 4+ glucose. Toxicology reported negative for influenza type a, B, RSV, SARS-Cov-2. Chest x-ray reported lower lung findings with no obvious acute cardiopulmonary process. Brain CT reported no acute intracranial process, no septic change from prior. Ammonia level less than 9. Phos on admission 8.4, currently down to 2.6. Lactic acid 11.2 currently down to 2.5. Afebrile DKA protocol initiated in the ER, D 5 running at 150 MLS an hour, insulin drip currently at 10 units an hour.Blood sugars down to 225, bicarb 23, anion gap 9, renal function improving. Review of Systems ROS Statement: Those systems with pertinent positive or pertinent negative responses have been documented in the HPI. ROS Other: All systems not noted in ROS Statement are negative. Past Medical History Past Medical History: Diabetes Mellitus Additional Past Medical History / Comment(s): insulin pump, parkinsons History of Any Multi-Drug Resistant Organisms: None Reported Additional Past Surgical History / Comment(s): left leg surgery after injury- titanium knee; Left shoulder repair ; left wrist repair Past Anesthesia/Blood Transfusion Reactions: No Reported Reaction Smoking Status: Former smoker Medications and Allergies Home Medications Medication Instructions Recorded Confirmed Type Carbidopa-Levodopa ER 50-200Mg 1 tab PO BID 09/20/22 09/20/22 History [Sinemet CR 50-200 mg] INSULIN LISPRO (For Pump) [humaLOG 0.01 units SQ-PUMP CONTINUOUS MDD 09/20/22 09/20/22 History (For Pump)] 100 UNITS Allergies Allergy/AdvReac Type Severity Reaction Status Date / Time No Known Allergies Allergy Verified 09/20/22 21:06 Physical Exam Vitals: Vital Signs Temp Pulse Resp BP Pulse Ox 09/21/22 07:00 87 18 136/52 98 09/21/22 06:00 79 14 119/76 98 09/21/22 05:00 92 18 133/49 98 09/21/22 04:00 97.6 F 87 24 136/57 98 09/21/22 03:00 89 15 135/49 97 09/21/22 02:00 93 18 120/48 97 09/21/22 01:00 98 18 128/53 96 09/21/22 00:10 105 H 14 128/53 98 09/21/22 00:00 98.2 F 103 H 18 118/50 96 09/20/22 23:00 104 H 15 115/61 94 L 09/20/22 22:30 110 H 22 115/61 98 09/20/22 22:25 111 H 09/20/22 22:03 109 H 17 137/77 96 09/20/22 21:41 110 H 18 110/57 97 09/20/22 21:00 98.7 F 111 H 18 97/41 96 09/20/22 19:29 112 H 32 H 137/51 98 09/20/22 18:52 98.2 F 122 H 28 H 144/57 100 Intake and Output 09/20/22 09/21/22 09/21/22 22:59 06:59 14:59 Intake Total 228.413 5520.173 234.337 Output Total 0 300 0 Balance 842.275 4302.173 234.337 Intake: Intake, IV Titration 584.640 2160.173 234.337 Amount Insulin Regular 100 unit 5.581 59.173 34.337 In Sodium Chloride 0.9% 100 ml @ 0.1 UNITS/KG/HR 7.788 mls/hr IV .[id number] JAY Rx#:[id number] Sodium Chloride 0.9% 1, 200 1600 200 000 ml @ 200 mls/hr IV . Q5H JAY Rx#:[id number] Output: Urine 0 300 0 Other: Voiding Method External Catheter Weight 77.111 kg 83.9 kg PHYSICAL EXAM: VITAL SIGNS: [As above] GENERAL: Sitting up in bed, alert and oriented 3 HEENT: Conjunctivae normal. eyes normal. NECK: No JVD. No thyroid enlargement. No LNs CARDIOVASCULAR: S1, S2 regular. No murmur RESPIRATION: Breath sounds diminished in the bases. No rhonchi or crackles. No bronchial breathing. ABDOMEN: Soft, nontender . No guarding. no masses palpable. Bowel sounds he brigitte. LEGS: No edema. no swelling PSYCHIATRY: Alert and oriented X3, mood and affect normal. NERVOUS SYSTEM: Cranial N 2-12 grossly normal. No focal deficits. Strength and sensation grossly intact.. Skin: Warm and dry, no rash Results CBC & Chem 7: 09/21/22 03:13 09/21/22 08:17 Labs: Abnormal Lab Results - Last 24 Hours (Table) 09/20/22 09/20/22 09/20/22 Range/Units 18:57 19:15 19:15 WBC 22.7 H (3.8-10.6) k/uL RBC 4.13 L (4.30-5.90) m/uL Hgb 12.6 L (13.0-17.5) gm/dL Hct (39.0-53.0) % MCV 104.9 H (80.0-100.0) fL MCHC 29.2 L (31.0-37.0) g/dL Neutrophils # 20.8 H (1.3-7.7) k/uL Lymphocytes # 0.9 L (1.0-4.8) k/uL VBG pH (7.31-7.41) VBG pCO2 (37-51) mmHg VBG HCO3 (24-28) mmol/L Sodium 135 L (137-145) mmol/L Potassium 5.5 H (3.5-5.1) mmol/L Chloride 94 L (98-107) mmol/L Carbon Dioxide 6 L* (22-30) mmol/L BUN 43 H (9-20) mg/dL Creatinine 1.73 H (0.66-1.25) mg/dL Glucose 924 H* (74-99) mg/dL POC Glucose (mg/dL) >600 H (70-110) mg/dL Hemoglobin A1c (0.0-6.0) % Plasma Lactic Acid Alonso (0.7-2.0) mmol/L Phosphorus 8.4 H (2.5-4.5) mg/dL Total Protein 6.0 L (6.3-8.2) g/dL Lipase 1237 H (23-300) U/L Urine Glucose (UA) (Negative) Urine Ketones (Negative) 09/20/22 09/20/22 09/20/22 Range/Units 19:15 19:15 19:26 WBC (3.8-10.6) k/uL RBC (4.30-5.90) m/uL Hgb (13.0-17.5) gm/dL Hct (39.0-53.0) % MCV (80.0-100.0) fL MCHC (31.0-37.0) g/dL Neutrophils # (1.3-7.7) k/uL Lymphocytes # (1.0-4.8) k/uL VBG pH 7.07 L* (7.31-7.41) VBG pCO2 23 L (37-51) mmHg VBG HCO3 7 L* (24-28) mmol/L Sodium (137-145) mmol/L Potassium (3.5-5.1) mmol/L Chloride (98-107) mmol/L Carbon Dioxide (22-30) mmol/L BUN (9-20) mg/dL Creatinine (0.66-1.25) mg/dL Glucose (74-99) mg/dL POC Glucose (mg/dL) (70-110) mg/dL Hemoglobin A1c (0.0-6.0) % Plasma Lactic Acid Alonso 11.2 H* (0.7-2.0) mmol/L Phosphorus (2.5-4.5) mg/dL Total Protein (6.3-8.2) g/dL Lipase (23-300) U/L Urine Glucose (UA) 4+ H (Negative) Urine Ketones 2+ H (Negative) 09/20/22 09/20/22 09/20/22 Range/Units 21:21 22:29 22:58 WBC (3.8-10.6) k/uL RBC (4.30-5.90) m/uL Hgb (13.0-17.5) gm/dL Hct (39.0-53.0) % MCV (80.0-100.0) fL MCHC (31.0-37.0) g/dL Neutrophils # (1.3-7.7) k/uL Lymphocytes # (1.0-4.8) k/uL VBG pH (7.31-7.41) VBG pCO2 (37-51) mmHg VBG HCO3 (24-28) mmol/L Sodium (137-145) mmol/L Potassium (3.5-5.1) mmol/L Chloride (98-107) mmol/L Carbon Dioxide (22-30) mmol/L BUN (9-20) mg/dL Creatinine (0.66-1.25) mg/dL Glucose (74-99) mg/dL POC Glucose (mg/dL) >600 H >600 H >600 H (70-110) mg/dL Hemoglobin A1c (0.0-6.0) % Plasma Lactic Acid Alonso (0.7-2.0) mmol/L Phosphorus (2.5-4.5) mg/dL Total Protein (6.3-8.2) g/dL Lipase (23-300) U/L Urine Glucose (UA) (Negative) Urine Ketones (Negative) 09/20/22 09/20/22 09/20/22 Range/Units 23:04 23:04 23:57 WBC (3.8-10.6) k/uL RBC (4.30-5.90) m/uL Hgb (13.0-17.5) gm/dL Hct (39.0-53.0) % MCV (80.0-100.0) fL MCHC (31.0-37.0) g/dL Neutrophils # (1.3-7.7) k/uL Lymphocytes # (1.0-4.8) k/uL VBG pH (7.31-7.41) VBG pCO2 (37-51) mmHg VBG HCO3 (24-28) mmol/L Sodium (137-145) mmol/L Potassium (3.5-5.1) mmol/L Chloride (98-107) mmol/L Carbon Dioxide 10 L (22-30) mmol/L BUN 49 H (9-20) mg/dL Creatinine 1.78 H (0.66-1.25) mg/dL Glucose 784 H* (74-99) mg/dL POC Glucose (mg/dL) >600 H (70-110) mg/dL Hemoglobin A1c (0.0-6.0) % Plasma Lactic Acid Alonso 6.0 H* (0.7-2.0) mmol/L Phosphorus (2.5-4.5) mg/dL Total Protein (6.3-8.2) g/dL Lipase (23-300) U/L Urine Glucose (UA) (Negative) Urine Ketones (Negative) 09/21/22 09/21/22 09/21/22 Range/Units 01:00 02:02 03:01 WBC (3.8-10.6) k/uL RBC (4.30-5.90) m/uL Hgb (13.0-17.5) gm/dL Hct (39.0-53.0) % MCV (80.0-100.0) fL MCHC (31.0-37.0) g/dL Neutrophils # (1.3-7.7) k/uL Lymphocytes # (1.0-4.8) k/uL VBG pH (7.31-7.41) VBG pCO2 (37-51) mmHg VBG HCO3 (24-28) mmol/L Sodium (137-145) mmol/L Potassium (3.5-5.1) mmol/L Chloride (98-107) mmol/L Carbon Dioxide (22-30) mmol/L BUN (9-20) mg/dL Creatinine (0.66-1.25) mg/dL Glucose (74-99) mg/dL POC Glucose (mg/dL) >600 H 582 H 535 H (70-110) mg/dL Hemoglobin A1c (0.0-6.0) % Plasma Lactic Acid Alonso (0.7-2.0) mmol/L Phosphorus (2.5-4.5) mg/dL Total Protein (6.3-8.2) g/dL Lipase (23-300) U/L Urine Glucose (UA) (Negative) Urine Ketones (Negative) 09/21/22 09/21/22 09/21/22 Range/Units 03:13 03:13 03:20 WBC 18.3 H (3.8-10.6) k/uL RBC 3.79 L (4.30-5.90) m/uL Hgb 11.8 L (13.0-17.5) gm/dL Hct 36.5 L (39.0-53.0) % MCV (80.0-100.0) fL MCHC (31.0-37.0) g/dL Neutrophils # (1.3-7.7) k/uL Lymphocytes # (1.0-4.8) k/uL VBG pH (7.31-7.41) VBG pCO2 (37-51) mmHg VBG HCO3 (24-28) mmol/L Sodium (137-145) mmol/L Potassium (3.5-5.1) mmol/L Chloride (98-107) mmol/L Carbon Dioxide (22-30) mmol/L BUN (9-20) mg/dL Creatinine (0.66-1.25) mg/dL Glucose (74-99) mg/dL POC Glucose (mg/dL) (70-110) mg/dL Hemoglobin A1c 7.4 H (0.0-6.0) % Plasma Lactic Acid Alonso 3.0 H* (0.7-2.0) mmol/L Phosphorus (2.5-4.5) mg/dL Total Protein (6.3-8.2) g/dL Lipase (23-300) U/L Urine Glucose (UA) (Negative) Urine Ketones (Negative) 09/21/22 09/21/22 09/21/22 Range/Units 03:20 03:20 04:08 WBC (3.8-10.6) k/uL RBC (4.30-5.90) m/uL Hgb (13.0-17.5) gm/dL Hct (39.0-53.0) % MCV (80.0-100.0) fL MCHC (31.0-37.0) g/dL Neutrophils # (1.3-7.7) k/uL Lymphocytes # (1.0-4.8) k/uL VBG pH (7.31-7.41) VBG pCO2 (37-51) mmHg VBG HCO3 (24-28) mmol/L Sodium (137-145) mmol/L Potassium (3.5-5.1) mmol/L Chloride (98-107) mmol/L Carbon Dioxide 20 L (22-30) mmol/L BUN 52 H (9-20) mg/dL Creatinine 1.67 H (0.66-1.25) mg/dL Glucose 545 H* (74-99) mg/dL POC Glucose (mg/dL) 545 H (70-110) mg/dL Hemoglobin A1c (0.0-6.0) % Plasma Lactic Acid Alonso (0.7-2.0) mmol/L Phosphorus 2.2 L (2.5-4.5) mg/dL Total Protein (6.3-8.2) g/dL Lipase (23-300) U/L Urine Glucose (UA) (Negative) Urine Ketones (Negative) 09/21/22 09/21/22 09/21/22 Range/Units 05:04 06:08 06:58 WBC (3.8-10.6) k/uL RBC (4.30-5.90) m/uL Hgb (13.0-17.5) gm/dL Hct (39.0-53.0) % MCV (80.0-100.0) fL MCHC (31.0-37.0) g/dL Neutrophils # (1.3-7.7) k/uL Lymphocytes # (1.0-4.8) k/uL VBG pH (7.31-7.41) VBG pCO2 (37-51) mmHg VBG HCO3 (24-28) mmol/L Sodium (137-145) mmol/L Potassium (3.5-5.1) mmol/L Chloride (98-107) mmol/L Carbon Dioxide (22-30) mmol/L BUN (9-20) mg/dL Creatinine (0.66-1.25) mg/dL Glucose (74-99) mg/dL POC Glucose (mg/dL) 455 H 311 H 291 H (70-110) mg/dL Hemoglobin A1c (0.0-6.0) % Plasma Lactic Acid Alonso (0.7-2.0) mmol/L Phosphorus (2.5-4.5) mg/dL Total Protein (6.3-8.2) g/dL Lipase (23-300) U/L Urine Glucose (UA) (Negative) Urine Ketones (Negative) 09/21/22 09/21/22 09/21/22 Range/Units 07:54 08:06 08:17 WBC (3.8-10.6) k/uL RBC (4.30-5.90) m/uL Hgb (13.0-17.5) gm/dL Hct (39.0-53.0) % MCV (80.0-100.0) fL MCHC (31.0-37.0) g/dL Neutrophils # (1.3-7.7) k/uL Lymphocytes # (1.0-4.8) k/uL VBG pH (7.31-7.41) VBG pCO2 (37-51) mmHg VBG HCO3 (24-28) mmol/L Sodium (137-145) mmol/L Potassium (3.5-5.1) mmol/L Chloride 111 H (98-107) mmol/L Carbon Dioxide (22-30) mmol/L BUN 50 H (9-20) mg/dL Creatinine 1.49 H (0.66-1.25) mg/dL Glucose 217 H (74-99) mg/dL POC Glucose (mg/dL) 270 H 225 H (70-110) mg/dL Hemoglobin A1c (0.0-6.0) % Plasma Lactic Acid Alonso (0.7-2.0) mmol/L Phosphorus (2.5-4.5) mg/dL Total Protein (6.3-8.2) g/dL Lipase (23-300) U/L Urine Glucose (UA) (Negative) Urine Ketones (Negative) 09/21/22 09/21/22 09/21/22 Range/Units 08:17 09:08 10:11 WBC (3.8-10.6) k/uL RBC (4.30-5.90) m/uL Hgb (13.0-17.5) gm/dL Hct (39.0-53.0) % MCV (80.0-100.0) fL MCHC (31.0-37.0) g/dL Neutrophils # (1.3-7.7) k/uL Lymphocytes # (1.0-4.8) k/uL VBG pH (7.31-7.41) VBG pCO2 (37-51) mmHg VBG HCO3 (24-28) mmol/L Sodium (137-145) mmol/L Potassium (3.5-5.1) mmol/L Chloride (98-107) mmol/L Carbon Dioxide (22-30) mmol/L BUN (9-20) mg/dL Creatinine (0.66-1.25) mg/dL Glucose (74-99) mg/dL POC Glucose (mg/dL) 217 H 139 H (70-110) mg/dL Hemoglobin A1c (0.0-6.0) % Plasma Lactic Acid Alonso 2.5 H* (0.7-2.0) mmol/L Phosphorus (2.5-4.5) mg/dL Total Protein (6.3-8.2) g/dL Lipase (23-300) U/L Urine Glucose (UA) (Negative) Urine Ketones (Negative) Thrombosis Risk Factor Assmnt - Choose All That Apply Other Risk Factors: Yes Each Risk Factor Represents 3 Points: Age 75 years or older Other congenital or acquired thrombophilia - If yes, enter type in comment: No Thrombosis Risk Factor Assessment Total Risk Factor Score: 3 Thrombosis Risk Factor Assessment Level: Moderate Risk Assessment and Plan Assessment: DKA, etiology unclear, possibly failure Diabetes mellitus type 1, insulin pump, hemoglobin A1c 7.4 hyperglycemia Severe anion gap metabolic acidosis, resolved Dehydration Acute renal failure, improving Acute leukocytosis, reactive Parkinson's disease Acute metabolic encephalopathy, multifactorial secondary to Parkinson's,DKA, acute renal failure Former nicotine dependence Plan: Continue on current medication regime ,monitoring and symptomatic treatment. DKA protocol .Gap Closed/bicarb within normal limits. Family to bring insulin pump in. ICU management as per veneer jointer helper. Heparin subcu in place for DVT prophylaxis, PPI in place for GI prophylaxis. Home med /Sinemet resumed. The impression and plan of care has been dictated as directed. : I performed a history and examination of this patient, discussed the same with the dictator. I agree with the dictator's note ,documented as a scribe. Any additional findings or plans will be noted.
[2022-09-21] MEDS: CARBIDOPA-LEVODOPA ER 50-200MG 1 EACH TABLET.ER PO SCH ×2 (11:41→21:02)
[2022-09-21 12:08] LABS: Glucose,Whole Blood 106 mg/dL (70-110)
[2022-09-21 12:28] VITALS: BMI 28.1
[2022-09-21 12:51] LABS: Phosphorus 2.7 mg/dL (2.5-4.5); Potassium 4.2 mmol/L (3.5-5.1)
[2022-09-21 13:07] LABS: Glucose,Whole Blood 125 mg/dL (70-110)
[2022-09-21] MEDS ORDERED: LORazepam 1 MG/0.5 ML VIAL IV PRN (14:08)
[2022-09-21 14:09] LABS: Glucose,Whole Blood 97 mg/dL (70-110)
[2022-09-21 14:46] LABS: Glucose,Whole Blood 127 mg/dL (70-110)
[2022-09-21 15:51] LABS: Glucose,Whole Blood 142 mg/dL (70-110)
[2022-09-21 16:55] LABS: Glucose,Whole Blood 232 mg/dL (70-110)
[2022-09-21] MEDS ORDERED: DEXTROSE 50% SYRINGE 50 ML IVP PRN ×2 (16:56)
[2022-09-21] MEDS: INSULIN ASPART (NovoLOG) 100 UNIT/ML VIAL SQ SCH ×2 (17:22→21:01)
[2022-09-21 20:57] LABS: Glucose,Whole Blood 411 mg/dL (70-110)
[2022-09-22 01:53] LABS: Glucose,Whole Blood 322 mg/dL (70-110)
[2022-09-22] MEDS: INSULIN ASPART (NovoLOG) 100 UNIT/ML VIAL SQ SCH ×5 (01:54→20:21)
[2022-09-22] MEDS: D5-0.45% NACL WITH KCL 20MEQ/L 1,000 ML IV SCH (01:54)
[2022-09-22 06:35] LABS: Glucose,Whole Blood 233 mg/dL (70-110)
[2022-09-22 07:21] LABS: HCT 32.6 % (39.0-53.0); HGB 10.8 gm/dL (13.0-17.5); MCHC 33.2 g/dL (31.0-37.0); MCV 93.5 fL (80.0-100.0); Mean Platelet Volume 9.7; Platelet Count 169 k/uL (150-450); RBC 3.49 m/uL (4.30-5.90); RDW 13.2 % (11.5-15.5); WBC 13.6 k/uL (3.8-10.6)
[2022-09-22 07:45] LABS: ALT 7 U/L (4-49); AST 38 U/L (17-59); African American GFR (CKD) >90 (>60 ml/min/1.73 sqM); Albumin 2.9 g/dL (3.5-5.0); Alkaline Phosphatase 68 U/L (38-126); Anion Gap 7 mmol/L; Blood Urea Nitrogen 27 mg/dL (9-20); Calcium 7.7 mg/dL (8.4-10.2); Carbon Dioxide 21 mmol/L (22-30); Chloride 109 mmol/L (98-107); Glucose 240 mg/dL (74-99); Magnesium 1.9 mg/dL (1.6-2.3); Non-African American GFR(CKD) 85 (>60 ml/min/1.73 sqM); Potassium 4.5 mmol/L (3.5-5.1); Sodium 137 mmol/L (137-145); Total Protein 5.1 g/dL (6.3-8.2)
--- NOTE | 2022-09-22 10:14 | P.PN ---
Subjective Progress Note Date: 09/22/22 This is a 77-year-old gentleman with past medical history of diabetes mellitus 1. Insulin pump, Parkinson's disease, former nicotine dependence and multiple other medical issues presented to the ER with hyperglycemia, increased weakness, confusion over the last few days, vague historian. Patient reports his Parkinson's has been stable, has not required any steroids in the recent past, denies any infections. Patient reports he had been bow hunting, shot a deer, drug the deer approximately 30 feet to his 4 gonsales. He states blood sugars had progressive worsened, denied blurred vision, denies water intake 4 days with some nausea and vomiting. Denies abdominal pain. He also reports 2 days ago he woke up feeling out of it, confused with increased weakness, gait dysfunction .denies cough, congestion, fevers. Denies chest pain, palpitations or shortness of breath. ER noted apparently patient was not wearing his insulin pump instead it was in his pocket.On admission blood sugar was greater than 600, acetone positive, bicarb 6, anion gap 35. WBC 22.7, hemoglobin 12.6, MCV 104.9, platelets 318, INR 1, ABGs noted, sodium 135, potassium 5.5, BUN 49, creatinine 1.78. CT of head and pelvis reported no evidence for acute intra-abdominal process, hepatic steatosis, cholelithiasis and prostatomegaly, pancreas unremarkable. Lipase 1237, LFTs within normal limits, UA negative with 2+ ketones and 4+ glucose. Toxicology reported negative for influenza type a, B, RSV, SARS-Cov-2. Chest x-ray reported lower lung findings with no obvious acute cardiopulmonary process. Brain CT reported no acute intracranial process, no septic change from prior. Ammonia level less than 9. Phos on admission 8.4, currently down to 2.6. Lactic acid 11.2 currently down to 2.5. Afebrile DKA protocol initiated in the ER, D 5-11/21 running at 150 MLS an hour, insulin drip currently at 10 units an hour.Blood sugars down to 225, bicarb 23, anion gap 9, renal function improving. 09/22/2022 much more alert, feels better this morning. Insulin drip weaned off with blood sugars currently in the low 200s. Diet intake improving. Denies nausea vomiting or diarrhea. Denies abdominal pain Bicarb 21 anion gap 7 renal function stable. He reports his [employer] insulin pump is malfunctioning twice in the last 5 years, despite multiple battery changes. Afebrile, WBC decreased to 13.6. Preliminary blood cultures reporting no growth after 24 hours. Hemoglobin 10.8, platelets 169. Objective - Vital Signs Vital signs: Vital Signs Temp 97.8 F 09/22/22 04:00 Pulse 80 09/22/22 07:00 Resp 17 09/22/22 07:00 BP 143/61 09/22/22 07:00 Pulse Ox 92 L 09/22/22 07:00 FiO2 Intake & Output 09/21/22 09/22/22 09/22/22 18:59 06:59 18:59 Intake Total 2325.955 1650 50 Output Total 400 1250 0 Balance 1925.955 400 50 Weight 83.9 kg 81.6 kg Intake: Intake, IV Titration 2075.955 1650 50 Amount D5-0.45% NaCl with KCl 1800 1650 50 20Meq/l 1,000 ml @ 150 mls/hr IV .[id number] JAY Rx# :[id number] Insulin Regular 100 unit 75.955 In Sodium Chloride 0.9% 100 ml @ 0.1 UNITS/KG/HR 7.788 mls/hr IV .[id number] JAY Rx#:[id number] Sodium Chloride 0.9% 1, 200 000 ml @ 200 mls/hr IV . Q5H JAY Rx#:[id number] Oral 250 Output: Urine 400 1250 0 Other: Voiding Method External Catheter External Catheter - Exam PHYSICAL EXAM: VITAL SIGNS: [As above] GENERAL: Sitting up in bed, alert and oriented 3,NAD. HEENT: Conjunctivae normal. eyes normal. MMM. NECK: Supple, No JVD. CARDIOVASCULAR: S1, S2 regular. No murmur RESPIRATION: Breath sounds diminished in the bases. No rhonchi or crackles. ABDOMEN: Soft, nontender . No guarding. no masses palpable. Bowel sounds heard. LEGS: No edema. no swelling PSYCHIATRY: Alert and oriented X3, mood and affect normal. NERVOUS SYSTEM: Cranial N 2-12 grossly normal. No focal deficits. Strength and sensation grossly intact. Skin: Warm and dry, no rash - Labs CBC & Chem 7: 09/22/22 06:30 09/22/22 06:30 Labs: Abnormal Lab Results - Last 24 Hours (Table) 09/21/22 09/21/22 09/21/22 Range/Units 03:20 08:17 09:08 WBC (3.8-10.6) k/uL RBC (4.30-5.90) m/uL Hgb (13.0-17.5) gm/dL Hct (39.0-53.0) % Chloride (98-107) mmol/L Carbon Dioxide (22-30) mmol/L BUN (9-20) mg/dL Creatinine (0.66-1.25) mg/dL Glucose (74-99) mg/dL POC Glucose (mg/dL) 217 H (70-110) mg/dL Hemoglobin A1c 7.4 H (0.0-6.0) % Plasma Lactic Acid Alonso 2.5 H* (0.7-2.0) mmol/L Calcium (8.4-10.2) mg/dL Total Protein (6.3-8.2) g/dL Albumin (3.5-5.0) g/dL 09/21/22 09/21/22 09/21/22 Range/Units 10:11 11:14 12:09 WBC (3.8-10.6) k/uL RBC (4.30-5.90) m/uL Hgb (13.0-17.5) gm/dL Hct (39.0-53.0) % Chloride 110 H (98-107) mmol/L Carbon Dioxide (22-30) mmol/L BUN 50 H (9-20) mg/dL Creatinine 1.37 H (0.66-1.25) mg/dL Glucose (74-99) mg/dL POC Glucose (mg/dL) 139 H 208 H (70-110) mg/dL Hemoglobin A1c (0.0-6.0) % Plasma Lactic Acid Alonso (0.7-2.0) mmol/L Calcium (8.4-10.2) mg/dL Total Protein (6.3-8.2) g/dL Albumin (3.5-5.0) g/dL 09/21/22 09/21/22 09/21/22 Range/Units 12:09 13:06 14:45 WBC (3.8-10.6) k/uL RBC (4.30-5.90) m/uL Hgb (13.0-17.5) gm/dL Hct (39.0-53.0) % Chloride (98-107) mmol/L Carbon Dioxide (22-30) mmol/L BUN (9-20) mg/dL Creatinine (0.66-1.25) mg/dL Glucose (74-99) mg/dL POC Glucose (mg/dL) 125 H 127 H (70-110) mg/dL Hemoglobin A1c (0.0-6.0) % Plasma Lactic Acid Alonso 2.3 H* (0.7-2.0) mmol/L Calcium (8.4-10.2) mg/dL Total Protein (6.3-8.2) g/dL Albumin (3.5-5.0) g/dL 09/21/22 09/21/22 09/21/22 Range/Units 15:50 16:54 17:40 WBC (3.8-10.6) k/uL RBC (4.30-5.90) m/uL Hgb (13.0-17.5) gm/dL Hct (39.0-53.0) % Chloride (98-107) mmol/L Carbon Dioxide (22-30) mmol/L BUN (9-20) mg/dL Creatinine (0.66-1.25) mg/dL Glucose (74-99) mg/dL POC Glucose (mg/dL) 142 H 232 H (70-110) mg/dL Hemoglobin A1c 7.6 H (0.0-6.0) % Plasma Lactic Acid Alonso (0.7-2.0) mmol/L Calcium (8.4-10.2) mg/dL Total Protein (6.3-8.2) g/dL Albumin (3.5-5.0) g/dL 09/21/22 09/22/22 09/22/22 Range/Units 20:55 01:51 06:30 WBC 13.6 H (3.8-10.6) k/uL RBC 3.49 L (4.30-5.90) m/uL Hgb 10.8 L (13.0-17.5) gm/dL Hct 32.6 L (39.0-53.0) % Chloride (98-107) mmol/L Carbon Dioxide (22-30) mmol/L BUN (9-20) mg/dL Creatinine (0.66-1.25) mg/dL Glucose (74-99) mg/dL POC Glucose (mg/dL) 411 H 322 H (70-110) mg/dL Hemoglobin A1c (0.0-6.0) % Plasma Lactic Acid Alonso (0.7-2.0) mmol/L Calcium (8.4-10.2) mg/dL Total Protein (6.3-8.2) g/dL Albumin (3.5-5.0) g/dL 09/22/22 09/22/22 Range/Units 06:30 06:33 WBC (3.8-10.6) k/uL RBC (4.30-5.90) m/uL Hgb (13.0-17.5) gm/dL Hct (39.0-53.0) % Chloride 109 H (98-107) mmol/L Carbon Dioxide 21 L (22-30) mmol/L BUN 27 H (9-20) mg/dL Creatinine (0.66-1.25) mg/dL Glucose 240 H (74-99) mg/dL POC Glucose (mg/dL) 233 H (70-110) mg/dL Hemoglobin A1c (0.0-6.0) % Plasma Lactic Acid Alonso (0.7-2.0) mmol/L Calcium 7.7 L (8.4-10.2) mg/dL Total Protein 5.1 L (6.3-8.2) g/dL Albumin 2.9 L (3.5-5.0) g/dL Microbiology - Last 24 Hours (Table) 09/20/22 19:22 Blood Culture - Preliminary Blood No Growth after 24 hours 09/20/22 19:16 Blood Culture - Preliminary Blood No Growth after 24 hours Assessment and Plan Assessment: DKA, etiology unclear, possibly failure Diabetes mellitus type 1, insulin pump, hemoglobin A1c 7.4 hyperglycemia Severe anion gap metabolic acidosis, resolved Dehydration, improving Acute renal failure, improving Acute leukocytosis, reactive Parkinson's disease Acute metabolic encephalopathy, multifactorial secondary to Parkinson's,DKA Former nicotine dependence Plan: Continue on current medication regime ,monitoring and symptomatic treatment. Insulins sliding scale,Levemir insulin added to med regimen with close monitoring of Accu-Cheks . Case management to assist patient with [employer] rep. regarding potentially malfunctioning insulin pump. ICU Management as per stock dealer. discussed potential of obtaining authorization in clinic with PCP for Dexacom. The impression and plan of care has been dictated as directed. : I performed a history and examination of this patient, discussed the same with the dictator. I agree with the dictator's note ,documented as a scribe. Any additional findings or plans will be noted.
[2022-09-22] MEDS: PANTOPRAZOLE 40 MG/10 ML VIAL IV SCH (10:16)
[2022-09-22] MEDS: INSULIN DETEMIR (LEVEMIR) 100 UNIT/ML SYR SQ SCH (10:17)
[2022-09-22] MEDS: HEPARIN SODIUM,PORCINE/PF 5,000 UNIT/0.5 ML SYRINGE SQ SCH ×2 (10:17→20:21)
[2022-09-22] MEDS: CARBIDOPA-LEVODOPA ER 50-200MG 1 EACH TABLET.ER PO SCH ×2 (10:17→20:21)
--- NOTE | 2022-09-22 10:50 | P.PN ---
Subjective Progress Note Date: 09/22/22 Principal diagnosis: Diabetic ketoacidosis. 77-year-old male patient, diabetic, probably type I, maintenance and on his lites and is currently on insulin pump. He has been running higher blood sugar for the past week or so and he has been feeling weak and dehydrated. He came to the emergency room via EMS. He blood sugar was above 600. He was altered and he was unable to provide history. He stated that he was given feeling sick for a few days. No nausea or vomiting or emesis. No abdominal pain. He was found to be an anion gap metabolic acidosis consistent with DKA. He was treated with Levaquin and this morning his anion gap is closed. In summary, based on the la bs, his initial anion gap was quite elevated at 35. His serum bicarbonate was as low was 6. Most recent serum bicarb is up to 23. The patient's anion gap is also down to 9. He received fluids in the form of normal saline and he was aggressively resuscitated with IV fluids a total of 3 L was given to him in the emergency, currently he is on D5 half-normal at the rate of 150 mL an hour. Insulin drip is currently running at 10 units an hour. Blood sugar is currently 217. White cell count of 18.3 hemoglobin is 11.8. He has no specific complaints. Cognition profile is within normal. An acute kidney injury which is also improving. Creatinine is at time of admission was 1.73 and is currently down to 1.49. UA was negative. Urine drug screen has not been done. LFTs are normal. Influenza screen was negative. Covid 19 testing was negative Progress note dated 09/22/2022. The patient is seen today in room 257, in the intensive care unit. He was admitted on September 20, with diabetic ketoacidosis, and acute kidney injury. Patient is currently on room air. He's getting dextrose with half-normal saline and 20 mEq of potassium chloride at 50 mL an hour. The patient is stable to be transferred to the general medical floor. He has no complaints today and had an uneventful night. White count 13.6, hemoglobin 10.8, hematocrit 32.6, and platelet count 269,000. Sodium 137, potassium 4.5, chlorides 109, CO2 21, BUN 27, creatinine 0.87. Albumin is 2.9. Blood cultures are negative. Chest x-ray was not done. Objective - Vital Signs Vital signs: Vital Signs Temp 97.8 F 09/22/22 04:00 Pulse 76 09/22/22 10:00 Resp 18 09/22/22 10:00 BP 150/67 09/22/22 10:00 Pulse Ox 95 09/22/22 10:00 FiO2 Intake & Output 09/21/22 09/22/22 09/22/22 18:59 06:59 18:59 Intake Total 2325.955 1650 50 Output Total 400 1250 0 Balance 1925.955 400 50 Weight 83.9 kg 81.6 kg Intake: Intake, IV Titration 2075.955 1650 50 Amount D5-0.45% NaCl with KCl 1800 1650 50 20Meq/l 1,000 ml @ 150 mls/hr IV .[id number] JAY Rx# :[id number] Insulin Regular 100 unit 75.955 In Sodium Chloride 0.9% 100 ml @ 0.1 UNITS/KG/HR 7.788 mls/hr IV .[id number] JAY Rx#:[id number] Sodium Chloride 0.9% 1, 200 000 ml @ 200 mls/hr IV . Q5H JAY Rx#:[id number] Oral 250 Output: Urine 400 1250 0 Other: Voiding Method External Catheter External Catheter External Catheter - Exam No acute distress, oriented 3. Currently on room air. HEENT examination is grossly unremarkable. Neck supple. Full range of motion. No adenopathy thyromegaly or neck vein distention. Cardiovascular examination reveals regular rhythm rate. S1-S2 normal. No S3 or S4. No discernible murmur noted. Heart rate 76/m. Lungs reveal clear breath sounds. Breath sounds are equal bilaterally. No adventitious lung sounds including wheezes rhonchi or crackles. Abdomen soft bowel sounds are heard. No masses or tenderness. Extremities are intact. No cyanosis clubbing or edema. Skin is without rash or lesion. Neurologic examination is brief but nonfocal. - Labs CBC & Chem 7: 09/22/22 06:30 09/22/22 06:30 Labs: Abnormal Lab Results - Last 24 Hours (Table) 09/21/22 09/21/22 09/21/22 Range/Units 11:14 12:09 12:09 WBC (3.8-10.6) k/uL RBC (4.30-5.90) m/uL Hgb (13.0-17.5) gm/dL Hct (39.0-53.0) % Chloride 110 H (98-107) mmol/L Carbon Dioxide (22-30) mmol/L BUN 50 H (9-20) mg/dL Creatinine 1.37 H (0.66-1.25) mg/dL Glucose (74-99) mg/dL POC Glucose (mg/dL) 208 H (70-110) mg/dL Hemoglobin A1c (0.0-6.0) % Plasma Lactic Acid Alonso 2.3 H* (0.7-2.0) mmol/L Calcium (8.4-10.2) mg/dL Total Protein (6.3-8.2) g/dL Albumin (3.5-5.0) g/dL 09/21/22 09/21/22 09/21/22 Range/Units 13:06 14:45 15:50 WBC (3.8-10.6) k/uL RBC (4.30-5.90) m/uL Hgb (13.0-17.5) gm/dL Hct (39.0-53.0) % Chloride (98-107) mmol/L Carbon Dioxide (22-30) mmol/L BUN (9-20) mg/dL Creatinine (0.66-1.25) mg/dL Glucose (74-99) mg/dL POC Glucose (mg/dL) 125 H 127 H 142 H (70-110) mg/dL Hemoglobin A1c (0.0-6.0) % Plasma Lactic Acid Alonso (0.7-2.0) mmol/L Calcium (8.4-10.2) mg/dL Total Protein (6.3-8.2) g/dL Albumin (3.5-5.0) g/dL 09/21/22 09/21/22 09/21/22 Range/Units 16:54 17:40 20:55 WBC (3.8-10.6) k/uL RBC (4.30-5.90) m/uL Hgb (13.0-17.5) gm/dL Hct (39.0-53.0) % Chloride (98-107) mmol/L Carbon Dioxide (22-30) mmol/L BUN (9-20) mg/dL Creatinine (0.66-1.25) mg/dL Glucose (74-99) mg/dL POC Glucose (mg/dL) 232 H 411 H (70-110) mg/dL Hemoglobin A1c 7.6 H (0.0-6.0) % Plasma Lactic Acid Alonso (0.7-2.0) mmol/L Calcium (8.4-10.2) mg/dL Total Protein (6.3-8.2) g/dL Albumin (3.5-5.0) g/dL 09/22/22 09/22/22 09/22/22 Range/Units 01:51 06:30 06:30 WBC 13.6 H (3.8-10.6) k/uL RBC 3.49 L (4.30-5.90) m/uL Hgb 10.8 L (13.0-17.5) gm/dL Hct 32.6 L (39.0-53.0) % Chloride 109 H (98-107) mmol/L Carbon Dioxide 21 L (22-30) mmol/L BUN 27 H (9-20) mg/dL Creatinine (0.66-1.25) mg/dL Glucose 240 H (74-99) mg/dL POC Glucose (mg/dL) 322 H (70-110) mg/dL Hemoglobin A1c (0.0-6.0) % Plasma Lactic Acid Alonso (0.7-2.0) mmol/L Calcium 7.7 L (8.4-10.2) mg/dL Total Protein 5.1 L (6.3-8.2) g/dL Albumin 2.9 L (3.5-5.0) g/dL 09/22/22 Range/Units 06:33 WBC (3.8-10.6) k/uL RBC (4.30-5.90) m/uL Hgb (13.0-17.5) gm/dL Hct (39.0-53.0) % Chloride (98-107) mmol/L Carbon Dioxide (22-30) mmol/L BUN (9-20) mg/dL Creatinine (0.66-1.25) mg/dL Glucose (74-99) mg/dL POC Glucose (mg/dL) 233 H (70-110) mg/dL Hemoglobin A1c (0.0-6.0) % Plasma Lactic Acid Alonso (0.7-2.0) mmol/L Calcium (8.4-10.2) mg/dL Total Protein (6.3-8.2) g/dL Albumin (3.5-5.0) g/dL Microbiology - Last 24 Hours (Table) 09/20/22 19:22 Blood Culture - Preliminary Blood No Growth after 24 hours 09/20/22 19:16 Blood Culture - Preliminary Blood No Growth after 24 hours Assessment and Plan Assessment: Acute diabetic ketoacidosis. Anion gap metabolic acidosis. Type 1 diabetes mellitus. Acute kidney injury. Hyperglycemia. History of Parkinson's disease. Plan: Plan dated 09/22/2022. The patient is well-known to be transferred out of the intensive care unit. He had an uneventful night. His respiratory status and hemodynamics status are both stable. The patient can go to the general medical floor without telemetry. Labs, x-rays, and medications are all reviewed. Prognosis is guarded. We will continue to follow as needed. Time with Patient: Less than 30
[2022-09-22 11:54] LABS: Glucose,Whole Blood 278 mg/dL (70-110)
[2022-09-22 16:46] LABS: Glucose,Whole Blood 181 mg/dL (70-110)
[2022-09-22 20:14] LABS: Glucose,Whole Blood 207 mg/dL (70-110)
[2022-09-23 02:15] LABS: Glucose,Whole Blood 84 mg/dL (70-110)
[2022-09-23] MEDS: INSULIN ASPART (NovoLOG) 100 UNIT/ML VIAL SQ SCH ×2 (02:19→06:43)
[2022-09-23 06:37] LABS: Glucose,Whole Blood 204 mg/dL (70-110)
[2022-09-23] MEDS: INSULIN DETEMIR (LEVEMIR) 100 UNIT/ML SYR SQ SCH (06:43)
[2022-09-23] MEDS: HEPARIN SODIUM,PORCINE/PF 5,000 UNIT/0.5 ML SYRINGE SQ SCH (09:06)
[2022-09-23] MEDS: CARBIDOPA-LEVODOPA ER 50-200MG 1 EACH TABLET.ER PO SCH (09:06)
[2022-09-23] MEDS: PANTOPRAZOLE 40 MG/10 ML VIAL IV SCH (09:07)
[2022-09-23 09:39] VITALS: BP 153/68; PULSE 60; RESP 16; TEMP 98.2
--- NOTE | 2022-09-23 10:47 | P.PN ---
Subjective Progress Note Date: 09/23/22 Principal diagnosis: Diabetic ketoacidosis. 77-year-old male patient, diabetic, probably type I, maintenance and on his lites and is currently on insulin pump. He has been running higher blood sugar for the past week or so and he has been feeling weak and dehydrated. He came to the emergency room via EMS. He blood sugar was above 600. He was altered and he was unable to provide history. He stated that he was given feeling sick for a few days. No nausea or vomiting or emesis. No abdominal pain. He was found to be an anion gap metabolic acidosis consistent with DKA. He was treated with Levaquin and this morning his anion gap is closed. In summary, based on the la bs, his initial anion gap was quite elevated at 35. His serum bicarbonate was as low was 6. Most recent serum bicarb is up to 23. The patient's anion gap is also down to 9. He received fluids in the form of normal saline and he was aggressively resuscitated with IV fluids a total of 3 L was given to him in the emergency, currently he is on D5 half-normal at the rate of 150 mL an hour. Insulin drip is currently running at 10 units an hour. Blood sugar is currently 217. White cell count of 18.3 hemoglobin is 11.8. He has no specific complaints. Cognition profile is within normal. An acute kidney injury which is also improving. Creatinine is at time of admission was 1.73 and is currently down to 1.49. UA was negative. Urine drug screen has not been done. LFTs are normal. Influenza screen was negative. Covid 19 testing was negative Progress note dated 09/22/2022. The patient is seen today in room 257, in the intensive care unit. He was admitted on September 20, with diabetic ketoacidosis, and acute kidney injury. Patient is currently on room air. He's getting dextrose with half-normal saline and 20 mEq of potassium chloride at 50 mL an hour. The patient is stable to be transferred to the general medical floor. He has no complaints today and had an uneventful night. White count 13.6, hemoglobin 10.8, hematocrit 32.6, and platelet count 269,000. Sodium 137, potassium 4.5, chlorides 109, CO2 21, BUN 27, creatinine 0.87. Albumin is 2.9. Blood cultures are negative. Chest x-ray was not done. Progress note dated 09/23/2022. The patient is seen in room 257. The patient is hoping to be discharged home. He is on room air. No IV fluids. Sugar this morning was 204. The patient does not have any complaints. He denies any shortness of breath, cough, wheezing, chest tightness, chest pain, nausea, vomiting, diarrhea, or any genitourinary complaints. The patient is hoping to be discharged home. Certainly that'll be up to the primary. No new labs today other than a blood glucose. Clinically, the patient is stable. Objective - Vital Signs Vital signs: Vital Signs Temp 98.2 F 09/23/22 08:00 Pulse 60 09/23/22 08:00 Resp 16 09/23/22 08:00 BP 153/68 09/23/22 08:00 Pulse Ox 100 09/23/22 08:00 FiO2 Intake & Output 09/22/22 09/23/22 09/23/22 18:59 06:59 18:59 Intake Total 850 Output Total 650 Balance 200 Weight 81.9 kg Intake: Intake, IV Titration 50 Amount D5-0.45% NaCl with KCl 50 20Meq/l 1,000 ml @ 50 mls /hr IV .Q20H JAY Rx#: [id number] Oral 800 Output: Urine 650 Other: Voiding Method External Catheter Toilet Toilet Urinal Urinal # Voids 2 3 - Exam No acute distress, oriented 3. Currently on room air. Saturation is 100%. HEENT examination is grossly unremarkable. Neck supple. Full range of motion. No adenopathy thyromegaly or neck vein distention. Cardiovascular examination reveals regular rhythm rate. S1-S2 normal. No S3 or S4. No discernible murmur noted. Heart rate 60 bpm. Lungs reveal clear breath sounds. Breath sounds are equal bilaterally. No adventitious lung sounds including wheezes rhonchi or crackles. Abdomen soft bowel sounds are heard. No masses or tenderness. Extremities are intact. No cyanosis clubbing or edema. Skin is without rash or lesion. Neurologic examination is brief but nonfocal. - Labs CBC & Chem 7: 09/22/22 06:30 09/22/22 06:30 Labs: Abnormal Lab Results - Last 24 Hours (Table) 09/22/22 09/22/22 09/22/22 Range/Units 11:53 16:44 20:12 POC Glucose (mg/dL) 278 H 181 H 207 H (70-110) mg/dL 09/23/22 Range/Units 06:35 POC Glucose (mg/dL) 204 H (70-110) mg/dL Microbiology - Last 24 Hours (Table) 09/20/22 19:22 Blood Culture - Preliminary Blood No Growth after 48 hours 09/20/22 19:16 Blood Culture - Preliminary Blood No Growth after 48 hours Assessment and Plan Assessment: Acute diabetic ketoacidosis. Anion gap metabolic acidosis. Type 1 diabetes mellitus. Acute kidney injury. Hyperglycemia. History of Parkinson's disease. Plan: Plan dated 09/22/2022. The patient is well-known to be transferred out of the intensive care unit. He had an uneventful night. His respiratory status and hemodynamics status are both stable. The patient can go to the general medical floor without telemetry. Labs, x-rays, and medications are all reviewed. Prognosis is guarded. We will continue to follow as needed. Plan dated 09/23/2022. The patient is doing well. The patient hopes to be discharged home. Additional recommendations and suggestions are forthcoming. Labs, x-rays, and medications are reviewed. The patient's on room air. The patient is not receiving any IV fluids. The patient believes that the reason why he ended up in DKA was that his insulin pump was faulty, or had an issue with batteries. Time with Patient: Less than 30
--- NOTE | 2022-09-23 11:01 | P.DS ---
Providers Date of admission: 09/20/22 21:48 Expected date of discharge: 09/23/22 Attending physician: Roni Montenegro Consults: 09/20/22 21:12 Consult Physician Stat Consulting Provider: Darlene Colvin Consult Reason/Comments: DKA Do you want consulting provider notified?: Already Contacted Primary care physician: Roni Montenegro [facility] Course: Final Diagnoses: DKA, etiology unclear, suspected malfunctioning pump, possibly battery related Diabetes mellitus type 1, insulin pump, hemoglobin A1c 7.4 hyperglycemia Severe anion gap metabolic acidosis, resolved Dehydration, improving Acute renal failure, improving Acute leukocytosis, reactive Parkinson's disease Acute metabolic encephalopathy, multifactorial secondary to Parkinson's,DKA Former nicotine dependence Hospital course:This is a 77-year-old gentleman with past medical history of diabetes mellitus 1. Insulin pump, Parkinson's disease, former nicotine dependence and multiple other medical issues presented to the ER with hyperglycemia, increased weakness, confusion over the last few days, vague historian. Patient reports his Parkinson's has been stable, has not required any steroids in the recent past, denies any infections. Patient reports he had been bow hunting, shot a deer, drug the deer approximately 30 feet to his 4 gonsales. He states blood sugars had progressive worsened, denied blurred vision, denies water intake 4 days with some nausea and vomiting. Denies abdominal pain. He also reports 2 days ago he woke up feeling out of it, confused with increased weakness, gait dysfunction .denies cough, congestion, fevers. Denies chest pain, palpitations or shortness of breath. ER noted apparently patient was not wearing his insulin pump instead it was in his pocket.On admission blood sugar was greater than 600, acetone positive, bicarb 6, anion gap 35. WBC 22.7, hemoglobin 12.6, MCV 104.9, platelets 318, INR 1, ABGs noted, sodium 135, potassium 5.5, BUN 49, creatinine 1.78. CT of head and pelvis reported no evidence for acute intra-abdominal process, hepatic steatosis, cholelithiasis and prostatomegaly, pancreas unremarkable. Lipase 1237, LFTs within normal limits, UA negative with 2+ ketones and 4+ glucose. Toxicology reported negative for influenza type a, B, RSV, SARS-Cov-2. Chest x-ray reported lower lung findings with no obvious acute cardiopulmonary process. Brain CT reported no acute intracranial process, no septic change from prior. Ammonia level less than 9. Phos on admission 8.4, currently down to 2.6. Lactic acid 11.2 currently down to 2.5. Afebrile DKA protocol initiated in the ER, D running at 150 MLS an hour, insulin drip currently at 10 units an hour.Blood sugars down to 225, bicarb 23, anion gap 9, renal function improving. 09/22/2022 much more alert, feels better this morning. Insulin drip weaned off with blood sugars currently in the low 200s. Diet intake improving. Denies nausea vomiting or diarrhea. Denies abdominal pain Bicarb 21 anion gap 7 renal function stable. He reports his [employer] insulin pump is malfunctioning twice in the last 5 years, despite multiple battery changes. Afebrile, WBC decreased to 13.6. Preliminary blood cultures reporting no growth after 24 hours. Hemoglobin 10.8, platelets 169. Dr. Montenegro at bedside, insulin pump refilled with appropriate insulin, new tubing primed, all settings reviwed, battery changed, reapplied to patient. All questions and concerns addressed. Maintaining O2 sats in the 90s on room air, blood sugar this morning 204. Vital signs stable, denies any chest pain, pa lpitations shortness of breath. Denies any lightheadedness dizziness or focal deficits. Denies any nausea vomiting or diarrhea. Patient has no complaints. Significant clinical improvement. Patient will be discharged home today in a stable condition with fair prognosis pending final clearance from warehouse forklift operator. The impression and plan of care has been dictated as directed. : I performed a history and examination of this patient, discussed the same with the dictator. I agree with the dictator's note ,documented as a scribe. Any additional findings or plans will be noted. Patient Condition at Discharge: Stable Plan - Discharge Summary Discharge Rx Participant: Yes New Discharge Prescriptions: Continue Carbidopa-Levodopa ER 50-200Mg [Sinemet CR 50-200 mg] 1 tab PO BID INSULIN LISPRO (For Pump) [humaLOG (For Pump)] 0.01 units SQ-PUMP CONTINUOUS MDD 100 UNITS Discharge Medication List Carbidopa-Levodopa ER 50-200Mg [Sinemet CR 50-200 mg] 1 tab PO BID 09/20/22 [History] INSULIN LISPRO (For Pump) [humaLOG (For Pump)] 0.01 units SQ-PUMP CONTINUOUS MDD 100 UNITS 09/20/22 [History] Follow up Appointment(s)/Referral(s): Roni Montenegro DO [Primary Care Provider] - 3 Days
[2022-09-23 11:43] LABS: Glucose,Whole Blood 211 mg/dL (70-110)
== END 2022-09-23 14:03 | disposition home or self-care (01) | DRG 919 ==
LOC: EC 18:51 → 2SICU 21:48
PROVIDERS: ADMIT Family Medicine; ATTEND Family Medicine
DX: T85.614A Breakdown (mechanical) of insulin pump, initial encounter (principal); E10.10 Type 1 diabetes mellitus with ketoacidosis without coma; G93.41 Metabolic encephalopathy; N17.9 Acute kidney failure, unspecified; E83.39 Other disorders of phosphorus metabolism; E86.0 Dehydration; G20 Parkinson's disease; D72.829 Elevated white blood cell count, unspecified; T38.3X6A Underdosing of insulin and oral hypoglycemic [antidiabetic] drugs, initial encounter; Z79.4 Long term (current) use of insulin; K80.20 Calculus of gallbladder without cholecystitis without obstruction; Z20.822 Contact with and (suspected) exposure to COVID-19; Z87.891 Personal history of nicotine dependence; Z79.899 Other long term (current) drug therapy
CPT/HCPCS: 36415; 70450; 71045; 74176; 80051; 80053; 81003; 82009; 82140; 82565; 82803; 82947; 83036; 83605; 83690; 83735; 84100; 84484; 84520; 85025; 85027; 85610; 85730; 87040; 87636; 93005; 96361; 96374; 96375; 99284